=== PATIENT | male | born 1950 | race Two or more races ===

== ENCOUNTER 2018-11-03 06:10 | Inpatient (IN) ==
[2018-11-03] MEDS ORDERED: ONDANSETRON 4 MG/2 ML VIAL IV STA (06:32)
[2018-11-03] MEDS ORDERED: PANTOPRAZOLE 40 MG VIAL IV STA (06:32)
[2018-11-03] MEDS ORDERED: SODIUM CHLORIDE 0.9% 1,000 ML IV STA (06:32)
[2018-11-03 06:49] LABS: Basophils # 0.1 10*3/uL (0.0-0.2); Basophils % 0.3 % (0.0-0.8); Eosinophils # 0.2 10*3/uL (0.0-0.87); Eosinophils % 1.3 % (0.00-10.9); Hemoglobin 14.6 GM/DL (14.0-18.0); Immature Granulocytes % 0.4 %; Immature Granulocytes Absolute 0.06 #; Lymphocytes # 1.9 10*3/uL (1.4-4.0); Lymphocytes % 13.1 % (21.2-54.2); Mean Corpuscular HGB Conc 32.4 GM/DL (32-36); Mean Corpuscular Hemoglobin 28 PG (27-34); Mean Corpuscular Volume 86.5 FL (87-102); Mean Platelet Volume 9.8 FL (9.6-12.0); Monocytes # 0.5 10*3/uL (0.11-0.8); Monocytes % 3.6 % (1.7-12.7); Neutrophils # 12.1 10*3/uL (1.4-7.4); Neutrophils % 81.3 % (38.7-73.9); Platelet Count 262 T/CUMM (130-400); Red Cell Distribution Width 13.2 % (9.3-17.3); White Blood Count 14.8 T/CUMM (4-12)
[2018-11-03 07:16] LABS: Alanine Aminotransferase 31 U/L (16-61); Albumin 3.9 G/DL (3.4-5.0); Alkaline Phosphatase 79 U/L (45-117); Aspartate Amino Transferase 14 U/L (0-37); Blood Urea Nitrogen 9 MG/DL (7-18); Glucose 212 MG/DL (74-106); Osmolality,Calculated 272.2 MOS/KG (273-304); Potassium 3.6 MMOL/L (3.5-5.1); Sodium 134 MMOL/L (136-145); Total Protein 8.2 G/DL (6.4-8.3)
[2018-11-03] MEDS ORDERED: HYDROmorphone 2 MG/1 ML VIAL IV STA (07:47)
[2018-11-03] MEDS ORDERED: GLUCAGON 1 MG VIAL IM PRN (07:50)
[2018-11-03] MEDS ORDERED: DEXTROSE 50% 25 GM/50 ML VIAL IV PRN (07:50)
[2018-11-03] MEDS ORDERED: ONDANSETRON 4 MG/2 ML VIAL IV PRN (10:28)
[2018-11-03] MEDS ORDERED: HYDROmorphone 2 MG/1 ML VIAL IV PRN (10:28)
[2018-11-03] MEDS ORDERED: LACTATED RINGERS 500 ML IV ONE (10:28)
[2018-11-03] MEDS ORDERED: ACETAMINOPHEN 325 MG TABLET PO PRN (10:28)
[2018-11-03] MEDS: SODIUM CHLORIDE 0.45% 1,000 ML IV SCH ×2 (13:25→20:58)
[2018-11-03] MEDS: INSULIN LISPRO 100 UNIT/ML SUBCUT SCH ×2 (15:00→18:58)
[2018-11-03] MEDS ORDERED: hydrALAZINE 20 MG/1 ML VIAL IV PRN (18:25)
[2018-11-03 18:38] LABS: Apearance,Urine CLEAR (Clear); Bilirubin,Urine Negative (Negative); Blood, Urine Negative (Negative); Glucose,Urine (UA) Negative (Negative); Ketones,Urine Negative (Negative); Nitrite,Urine Negative (Negative); Protein,Urine Negative; RBC,Urine <1 /HPF (0-4); Urine Color Straw (Yellow); Urine Urobilinogen < 2.0 EU/DL (0.2-1.0); WBC,Urine <1 /HPF (0-6)
[2018-11-03] MEDS: ATORVASTATIN 20 MG TABLET PO SCH (20:59)
[2018-11-04] MEDS: INSULIN LISPRO 100 UNIT/ML SUBCUT SCH ×4 (00:20→18:35)
[2018-11-04] MEDS ORDERED: DEXTROSE 50% 25 GM/50 ML SYRINGE IV PRN (00:30)
[2018-11-04] MEDS: SODIUM CHLORIDE 0.45% 1,000 ML IV SCH ×2 (05:31→19:45)
[2018-11-04 05:59] LABS: Basophils % 0.2 % (0.0-0.8); Eosinophils # 0.1 10*3/uL (0.0-0.87); Hematocrit 34.2 VOL% (42.0-52.0); Immature Granulocytes % 0.3 %; Immature Granulocytes Absolute 0.03 #; Lymphocytes # 2.3 10*3/uL (1.4-4.0); Lymphocytes % 26.1 % (21.2-54.2); Mean Corpuscular Hemoglobin 29 PG (27-34); Mean Corpuscular Volume 86.4 FL (87-102); Mean Platelet Volume 10.1 FL (9.6-12.0); Monocytes % 10.9 % (1.7-12.7); Neutrophils # 5.4 10*3/uL (1.4-7.4); Neutrophils % 61.5 % (38.7-73.9); Platelet Count 235 T/CUMM (130-400); Red Cell Distribution Width 13.3 % (9.3-17.3)
[2018-11-04 06:00] LABS: Hemoglobin 11.3 GM/DL (14.0-18.0); Red Blood Count 3.96 MC/CUMM (3.8-5.5); White Blood Count 8.8 T/CUMM (4-12)
[2018-11-04] MEDS: LEVOTHYROXINE 100 MCG VIAL IV SCH (06:11)
[2018-11-04 06:22] LABS: Calcium 8.1 MG/DL (8.5-10.1); Osmolality,Calculated 270.8 MOS/KG (273-304); Potassium 3.7 MMOL/L (3.5-5.1)
[2018-11-04] MEDS ORDERED: LEVOTHYROXINE 50 MCG TABLET PO SCH (07:00)
[2018-11-04] MEDS: GLIMEPIRIDE 4 MG TABLET PO SCH ×2 (08:22→17:19)
[2018-11-04] MEDS: ATORVASTATIN 20 MG TABLET PO SCH (21:26)
[2018-11-05] MEDS: INSULIN LISPRO 100 UNIT/ML SUBCUT SCH ×2 (00:34→05:36)
[2018-11-05] MEDS: SODIUM CHLORIDE 0.45% 1,000 ML IV SCH (03:52)
[2018-11-05] MEDS: LEVOTHYROXINE 100 MCG VIAL IV SCH (06:13)
[2018-11-05] MEDS: GLIMEPIRIDE 4 MG TABLET PO SCH (09:05)
[2018-11-05 11:12] VITALS: BP 124/71
== END 2018-11-05 12:25 | disposition home or self-care (01) | DRG 389 ==
LOC: N.ED 06:10 → N.EDINP 07:47 → N.3E 11:30
PROVIDERS: ADMIT Surgery; ATTEND Surgery

== ENCOUNTER 2020-08-06 09:57 | Inpatient (IN) ==
[2020-08-06] MEDS ORDERED: SODIUM CHLORIDE 0.9% 1,000 ML IV STA (10:37)
[2020-08-06 10:46] LABS: Basophils % 0.2 % (0.0-0.8); Hematocrit 37.1 VOL% (42.0-52.0); Hemoglobin 12.4 GM/DL (14.0-18.0); Immature Granulocytes % 0.4 %; Immature Granulocytes Absolute 0.02 #; Lymphocytes # 0.9 10*3/uL (1.4-4.0); Lymphocytes % 17.7 % (21.2-54.2); Mean Corpuscular HGB Conc 33.4 GM/DL (32-36); Mean Corpuscular Volume 85.5 FL (87-102); Mean Platelet Volume 10.1 FL (9.6-12.0); Monocytes % 9.6 % (1.7-12.7); Neutrophils % 72.1 % (38.7-73.9); Platelet Count 189 T/CUMM (130-400); Red Blood Count 4.34 MC/CUMM (3.8-5.5); Red Cell Distribution Width 12.1 % (9.3-17.3); White Blood Count 5.3 T/CUMM (4-12)
[2020-08-06 10:59] LABS: Band Neutrophils 5 % (0-10); Lymphocytes 15 % (20-55); Segmented Neutrophils 73 % (50-85); Total Cells Counted 100
[2020-08-06 11:00] LABS: Hypochromasia 1+; Microcytosis 1+; Platelet Estimate Adequate
[2020-08-06 11:02] LABS: Albumin 3.1 G/DL (3.4-5.0); Bilirubin,Total 0.5 MG/DL (0.2-1.0); Calcium 8.9 MG/DL (8.5-10.1); Osmolality,Calculated 265.9 MOS/KG (273-304); Total Protein 7.7 G/DL (6.4-8.3)
[2020-08-06] MEDS ORDERED: cefTRIAXone 1,000 MG in SODIUM CHLORIDE 0.9% 100 ML IV STA (12:22)
[2020-08-06] MEDS ORDERED: GLUCAGON 1 MG VIAL IM PRN (12:53)
[2020-08-06] MEDS ORDERED: ZALEPLON 5 MG CAPSULE PO PRN (12:53)
[2020-08-06] MEDS ORDERED: DEXTROSE 50% 25 GM/50 ML VIAL IV PRN (12:53)
[2020-08-06] MEDS ORDERED: ONDANSETRON 4 MG/2 ML VIAL IV PRN (12:53)
[2020-08-06 13:32] LABS: Risk Ratio 3.08; Thyroid Stimulating Hormone 4.99 uIU/ml (0.358-3.74)
[2020-08-06 13:34] LABS: Ferritin 273.8 ng/ml (26-388)
[2020-08-06 14:23] LABS: Bilirubin,Urine Negative (Negative); Blood, Urine Negative (Negative); Glucose,Urine (UA) Negative (Negative); Ketones,Urine Negative (Negative); Nitrite,Urine Negative (Negative); Protein,Urine Negative; RBC,Urine 1 /HPF (0-4); Urine Appearance CLEAR (Clear); Urine Color Yellow (Yellow); Urine Specific Gravity 1.004 (1.001-1.035); Urine Urobilinogen < 2.0 EU/DL (0.2-1.0); WBC,Urine <1 /HPF (0-6)
[2020-08-06] MEDS: DEXAMETHASONE 4 MG/1 ML VIAL IV SCH ×2 (14:37→21:40)
[2020-08-06] MEDS: SODIUM CHLORIDE 0.9% 1,000 ML IV SCH ×2 (14:37→22:59)
[2020-08-06] MEDS ORDERED: AZITHROMYCIN INJ 250 MG in SODIUM CHLORIDE 0.9% 250 ML IV SCH (15:00)
[2020-08-06 15:14] LABS: ABG HCO3 22.6 MMOL/L (20-26); ABG Oxygen Saturation 89.6 % (95-100); ABG PCO2 28.1 MM HG (35-48)
[2020-08-06] MEDS: ACETAMINOPHEN 500 MG TABLET PO PRN (15:22)
[2020-08-06] MEDS: INSULIN REGULAR 100 UNIT/ML SUBCUT SCH ×2 (16:55→21:36)
[2020-08-06] MEDS ORDERED: GLIMEPIRIDE 4 MG TABLET PO SCH ×2 (21:00)
[2020-08-06] MEDS: DICYCLOMINE 20 MG TABLET PO SCH (21:36)
[2020-08-06] MEDS: ASCORBIC ACID 500 MG TABLET PO SCH (21:36)
[2020-08-06] MEDS: ENOXAPARIN 40 MG/0.4 ML SYRINGE SUBCUT SCH (21:36)
[2020-08-07 04:28] LABS: ABG Base Excess -2.3 MMOL/L (-2.5-2.5); ABG HCO3 22.2 MMOL/L (20-26); ABG Oxygen Saturation 84.9 % (95-100); ABG PCO2 26.5 MM HG (35-48); ABG PH 7.482 (7.35-7.45); ABG PO2 48.8 MM HG (80-95); ABG TCO2 17.5 MMOL/L (23-27); Allen Test Positive; Pt O2 Delivery Device Room Air
[2020-08-07] MEDS: DEXAMETHASONE 4 MG/1 ML VIAL IV SCH ×2 (05:23→09:58)
[2020-08-07] MEDS: SODIUM CHLORIDE 0.9% 1,000 ML IV SCH ×2 (05:59→21:55)
[2020-08-07] MEDS: ZINC SULFATE 220 MG CAPSULE PO SCH (09:58)
[2020-08-07] MEDS: ASCORBIC ACID 500 MG TABLET PO SCH ×2 (09:58→21:50)
[2020-08-07] MEDS: INSULIN REGULAR 100 UNIT/ML SUBCUT SCH ×4 (09:58→21:50)
[2020-08-07] MEDS: PANTOPRAZOLE 40 MG TABLET PO SCH (09:58)
[2020-08-07] MEDS: LEVOTHYROXINE 75 MCG TABLET PO SCH (09:58)
[2020-08-07] MEDS: DICYCLOMINE 20 MG TABLET PO SCH ×2 (11:04→21:50)
[2020-08-07] MEDS: ENOXAPARIN 40 MG/0.4 ML SYRINGE SUBCUT SCH (21:50)
[2020-08-08 04:47] LABS: Allen Test Positive
[2020-08-08 04:51] LABS: ABG Base Excess -4.9 MMOL/L (-2.5-2.5); ABG HCO3 20.3 MMOL/L (20-26); ABG Oxygen Saturation 95.2 % (95-100); ABG PCO2 27.3 MM HG (35-48); ABG PH 7.431 (7.35-7.45); ABG PO2 76.3 MM HG (80-95); ABG TCO2 16.3 MMOL/L (23-27)
[2020-08-08 05:53] LABS: Basophils % 0.1 % (0.0-0.8); Hematocrit 34.9 VOL% (42.0-52.0); Hemoglobin 11.9 GM/DL (14.0-18.0); Immature Granulocytes % 0.8 %; Immature Granulocytes Absolute 0.11 #; Lymphocytes # 1.2 10*3/uL (1.4-4.0); Lymphocytes % 8.7 % (21.2-54.2); Mean Corpuscular HGB Conc 34.1 GM/DL (32-36); Mean Corpuscular Volume 85.5 FL (87-102); Mean Platelet Volume 9.9 FL (9.6-12.0); Monocytes % 8.3 % (1.7-12.7); Neutrophils % 82.1 % (38.7-73.9); Platelet Count 243 T/CUMM (130-400); Red Blood Count 4.08 MC/CUMM (3.8-5.5); Red Cell Distribution Width 12.2 % (9.3-17.3); White Blood Count 13.2 T/CUMM (4-12)
[2020-08-08] MEDS: SODIUM CHLORIDE 0.9% 1,000 ML IV SCH ×2 (06:10→15:50)
[2020-08-08 06:11] LABS: Calcium 7.7 MG/DL (8.5-10.1); Osmolality,Calculated 272.2 MOS/KG (273-304)
[2020-08-08] MEDS: INSULIN REGULAR 100 UNIT/ML SUBCUT SCH ×4 (08:24→20:36)
[2020-08-08] MEDS: ZINC SULFATE 220 MG CAPSULE PO SCH (09:36)
[2020-08-08] MEDS: ASCORBIC ACID 500 MG TABLET PO SCH ×2 (09:36→20:31)
[2020-08-08] MEDS: DEXAMETHASONE 4 MG/1 ML VIAL IV SCH (09:36)
[2020-08-08] MEDS: PANTOPRAZOLE 40 MG TABLET PO SCH (09:36)
[2020-08-08] MEDS: LEVOTHYROXINE 75 MCG TABLET PO SCH (09:36)
[2020-08-08] MEDS: DICYCLOMINE 20 MG TABLET PO SCH ×2 (09:36→20:31)
[2020-08-08] MEDS ORDERED: ETOMIDATE 20 MG/10 ML VIAL IV ONE ×3 (12:12→13:13)
[2020-08-08] MEDS ORDERED: SUCCINYLCHOLINE 200 MG/10 ML VIAL ONE (12:13)
[2020-08-08] MEDS ORDERED: NOREPINEPHRINE 4 MG/4 ML VIAL IV ONE (12:43)
[2020-08-08] MEDS ORDERED: SODIUM CHLORIDE 0.9% 1,000 ML IV PRN (12:46)
[2020-08-08] MEDS ORDERED: NOREPINEPHRINE 8 MG in SODIUM CHLORIDE 0.9% 242 ML IV PRN (12:53)
[2020-08-08] MEDS ORDERED: MIDAZOLAM 10 MG/2 ML VIAL ONE (12:56)
[2020-08-08] MEDS: MORPHINE 4 MG/1 ML VIAL IV PRN ×2 (12:57→12:58)
[2020-08-08 13:08] LABS: Bilirubin,Urine Negative (Negative); Blood, Urine Negative (Negative); Glucose,Urine (UA) 50 mg/dL (Negative); Hyaline Casts,Urine 3 /LPF (0-3); Ketones,Urine Negative (Negative); Nitrite,Urine Negative (Negative); Protein,Urine Negative; Squamous Epithelial Cell,Urine Occasional /HPF (0-10); Urine Appearance CLEAR (Clear); Urine Color Yellow (Yellow); Urine Specific Gravity 1.016 (1.001-1.035); Urine Urobilinogen < 2.0 EU/DL (0.2-1.0)
[2020-08-08] MEDS ORDERED: SUCCINYLCHOLINE 200 MG/10 ML VIAL IV ONE (13:14)
[2020-08-08] MEDS ORDERED: MORPHINE 4 MG/1 ML VIAL IV ONE (13:30)
[2020-08-08] MEDS: MIDAZOLAM 100 MG in SODIUM CHLORIDE 0.9% 80 ML IV PRN (13:41)
[2020-08-08] MEDS ORDERED: MIDAZOLAM 2 MG/2 ML VIAL IV ONE (13:44)
[2020-08-08 13:51] LABS: ABG Base Excess -10.4 MMOL/L (-2.5-2.5); ABG HCO3 16.3 MMOL/L (20-26); ABG Oxygen Saturation 98.3 % (95-100); ABG PCO2 28.9 MM HG (35-48); ABG PH 7.314 (7.35-7.45); ABG TCO2 13.1 MMOL/L (23-27)
[2020-08-08] MEDS ORDERED: REMDESIVIR 200 MG in SODIUM CHLORIDE 0.9% 210 ML IV ONE (14:00)
[2020-08-08] MEDS ORDERED: HEPARIN DRIP 25,000 UNITS/500 ML PREMIX IV SCH (14:30)
[2020-08-08] MEDS ORDERED: FUROSEMIDE 40 MG/4 ML VIAL IV ONE (16:10)
[2020-08-08] MEDS: HEPARIN DRIP 25,000 UNITS/500 ML PREMIX IV SCH (16:25)
[2020-08-09] MEDS: MIDAZOLAM 100 MG in SODIUM CHLORIDE 0.9% 80 ML IV PRN ×2 (00:24→14:36)
[2020-08-09 04:45] LABS: Basophils % 0.1 % (0.0-0.8); Hematocrit 29.8 VOL% (42.0-52.0); Hemoglobin 10.5 GM/DL (14.0-18.0); Immature Granulocytes % 1.1 %; Immature Granulocytes Absolute 0.16 #; Lymphocytes % 6.6 % (21.2-54.2); Mean Corpuscular HGB Conc 35.2 GM/DL (32-36); Mean Corpuscular Volume 83.5 FL (87-102); Mean Platelet Volume 10.5 FL (9.6-12.0); Monocytes % 4.8 % (1.7-12.7); Neutrophils % 87.4 % (38.7-73.9); Platelet Count 209 T/CUMM (130-400); Red Blood Count 3.57 MC/CUMM (3.8-5.5); Red Cell Distribution Width 12.3 % (9.3-17.3); White Blood Count 14.8 T/CUMM (4-12)
[2020-08-09 05:17] LABS: Calcium 7.5 MG/DL (8.5-10.1); Osmolality,Calculated 279.1 MOS/KG (273-304)
[2020-08-09 06:14] LABS: ABG Base Excess -1.5 MMOL/L (-2.5-2.5); ABG HCO3 23.1 MMOL/L (20-26); ABG Oxygen Saturation 97.2 % (95-100); ABG PCO2 31.5 MM HG (35-48); ABG PH 7.446 (7.35-7.45); ABG PO2 94.9 MM HG (80-95); ABG TCO2 19.5 MMOL/L (23-27); Allen Test Positive; Pt O2 Delivery Device Ventilator
[2020-08-09] MEDS: DEXAMETHASONE 4 MG/1 ML VIAL IV SCH (08:40)
[2020-08-09] MEDS: ASCORBIC ACID 500 MG TABLET PO SCH ×2 (08:41→20:30)
[2020-08-09] MEDS: PANTOPRAZOLE 40 MG TABLET PO SCH (08:41)
[2020-08-09] MEDS: DICYCLOMINE 20 MG TABLET PO SCH ×2 (08:41→20:30)
[2020-08-09] MEDS: LEVOTHYROXINE 75 MCG TABLET PO SCH (08:41)
[2020-08-09] MEDS: ZINC SULFATE 220 MG CAPSULE PO SCH (08:41)
[2020-08-09] MEDS: REMDESIVIR 100 MG in SODIUM CHLORIDE 0.9% 230 ML IV SCH (10:42)
[2020-08-09] MEDS: INSULIN REGULAR 100 UNIT/ML SUBCUT SCH ×3 (11:06→19:07)
[2020-08-09] MEDS: INSULIN GLARGINE 100 UNIT/ML SUBCUT SCH (12:21)
[2020-08-09] MEDS ORDERED: THIAMINE INJ 100 MG, FOLIC ACID INJ 1 MG, MULTIVITAMIN INJ 10 ML in SODIUM CHLORIDE 0.9... IV SCH (12:30)
[2020-08-09] MEDS: HEPARIN DRIP 25,000 UNITS/500 ML PREMIX IV SCH ×2 (22:20→23:06)
[2020-08-10] MEDS: INSULIN REGULAR 100 UNIT/ML SUBCUT SCH ×4 (01:50→18:15)
[2020-08-10 04:50] LABS: ABG Base Excess -0.2 MMOL/L (-2.5-2.5); ABG HCO3 24.3 MMOL/L (20-26); ABG Oxygen Saturation 97.9 % (95-100); ABG PCO2 34.6 MM HG (35-48); ABG PH 7.441 (7.35-7.45); ABG TCO2 21.3 MMOL/L (23-27)
[2020-08-10 04:59] LABS: Basophils % 0.1 % (0.0-0.8); Immature Granulocytes % 1.2 %; Immature Granulocytes Absolute 0.15 #; Lymphocytes # 1.1 10*3/uL (1.4-4.0); Lymphocytes % 8.9 % (21.2-54.2); Mean Corpuscular HGB Conc 34.5 GM/DL (32-36); Mean Corpuscular Volume 83.3 FL (87-102); Mean Platelet Volume 10.5 FL (9.6-12.0); Monocytes % 4.7 % (1.7-12.7); Neutrophils % 85.1 % (38.7-73.9); Platelet Count 216 T/CUMM (130-400); Red Blood Count 3.48 MC/CUMM (3.8-5.5); Red Cell Distribution Width 12.5 % (9.3-17.3); White Blood Count 12.7 T/CUMM (4-12)
[2020-08-10 05:20] LABS: Osmolality,Calculated 289.7 MOS/KG (273-304)
[2020-08-10 05:30] LABS: Band Neutrophils 1 % (0-10); Lymphocytes 7 % (20-55); Platelet Estimate Adequate; Segmented Neutrophils 88 % (50-85); Total Cells Counted 100
[2020-08-10 05:31] LABS: Hypochromasia Slight; Microcytosis Slight
[2020-08-10] MEDS: REMDESIVIR 100 MG in SODIUM CHLORIDE 0.9% 230 ML IV SCH (08:28)
[2020-08-10] MEDS: INSULIN GLARGINE 100 UNIT/ML SUBCUT SCH (08:29)
[2020-08-10] MEDS: ASCORBIC ACID 500 MG TABLET PO SCH ×2 (08:29→20:00)
[2020-08-10] MEDS: DICYCLOMINE 20 MG TABLET PO SCH (08:29)
[2020-08-10] MEDS: ZINC SULFATE 220 MG CAPSULE PO SCH (08:29)
[2020-08-10] MEDS: LEVOTHYROXINE 75 MCG TABLET PO SCH (08:29)
[2020-08-10] MEDS: PANTOPRAZOLE 40 MG TABLET PO SCH (08:29)
[2020-08-10] MEDS: DEXAMETHASONE 4 MG/1 ML VIAL IV SCH (08:29)
[2020-08-10] MEDS ORDERED: FUROSEMIDE 40 MG/4 ML VIAL IV ONE (09:30)
[2020-08-10] MEDS: FOLIC ACID 1 MG TABLET PER TUBE SCH (10:04)
[2020-08-10] MEDS: MULTIVITAMIN LIQUID (CENTRUM) 60 ML BOTTLE PER TUBE SCH (10:04)
[2020-08-10] MEDS: THIAMINE 100 MG TABLET PER TUBE SCH (10:05)
[2020-08-10] MEDS: MIDAZOLAM 100 MG in SODIUM CHLORIDE 0.9% 80 ML IV PRN (10:06)
[2020-08-10] MEDS ORDERED: INSULIN GLARGINE 100 UNIT/ML SUBCUT ONE (11:00)
[2020-08-10] MEDS ORDERED: BISACODYL 5 MG TABLET PO ONE (15:08)
[2020-08-10] MEDS: INSULIN LISPRO 100 UNIT/ML SUBCUT SCH (18:15)
[2020-08-10] MEDS: HEPARIN DRIP 25,000 UNITS/500 ML PREMIX IV SCH (18:48)
[2020-08-11] MEDS: INSULIN LISPRO 100 UNIT/ML SUBCUT SCH ×4 (00:01→18:01)
[2020-08-11] MEDS: INSULIN REGULAR 100 UNIT/ML SUBCUT SCH ×4 (00:01→18:00)
[2020-08-11 04:29] LABS: ABG Base Excess 3.3 MMOL/L (-2.5-2.5); ABG HCO3 27.3 MMOL/L (20-26); ABG Oxygen Saturation 94.6 % (95-100); ABG PCO2 33.7 MM HG (35-48); ABG PH 7.499 (7.35-7.45); ABG PO2 69.9 MM HG (80-95); ABG TCO2 23.7 MMOL/L (23-27); Allen Test Positive; Pt O2 Delivery Device Ventilator
[2020-08-11 05:00] LABS: Basophils % 0.2 % (0.0-0.8); Hematocrit 30.6 VOL% (42.0-52.0); Hemoglobin 10.6 GM/DL (14.0-18.0); Immature Granulocytes % 2.9 %; Immature Granulocytes Absolute 0.52 #; Lymphocytes # 1.5 10*3/uL (1.4-4.0); Lymphocytes % 8.5 % (21.2-54.2); Mean Corpuscular HGB Conc 34.6 GM/DL (32-36); Mean Corpuscular Volume 83.2 FL (87-102); Mean Platelet Volume 10.7 FL (9.6-12.0); Monocytes % 5.3 % (1.7-12.7); Neutrophils % 83.1 % (38.7-73.9); Platelet Count 315 T/CUMM (130-400); Red Blood Count 3.68 MC/CUMM (3.8-5.5); Red Cell Distribution Width 12.4 % (9.3-17.3)
[2020-08-11 05:05] LABS: Albumin 1.9 G/DL (3.4-5.0); Bilirubin,Total 0.6 MG/DL (0.2-1.0); Calcium 8.2 MG/DL (8.5-10.1); Osmolality,Calculated 294.5 MOS/KG (273-304); Total Protein 6.1 G/DL (6.4-8.3)
[2020-08-11 05:23] LABS: Hypochromasia Slight; Lymphocytes 7 % (20-55); Microcytosis Slight; Platelet Estimate Adequate; Segmented Neutrophils 89 % (50-85); Total Cells Counted 100
[2020-08-11] MEDS: HEPARIN DRIP 25,000 UNITS/500 ML PREMIX IV SCH ×2 (06:18→15:47)
[2020-08-11] MEDS ORDERED: HEPARIN 5,000 UNIT/1 ML VIAL IV ONE (06:22)
[2020-08-11] MEDS: ASCORBIC ACID 500 MG TABLET PO SCH ×2 (08:29→21:03)
[2020-08-11] MEDS: LEVOTHYROXINE 75 MCG TABLET PO SCH (08:30)
[2020-08-11] MEDS: THIAMINE 100 MG TABLET PER TUBE SCH (08:30)
[2020-08-11] MEDS: MULTIVITAMIN LIQUID (CENTRUM) 60 ML BOTTLE PER TUBE SCH (08:30)
[2020-08-11] MEDS: PANTOPRAZOLE 40 MG TABLET PO SCH (08:30)
[2020-08-11] MEDS: FOLIC ACID 1 MG TABLET PER TUBE SCH (08:30)
[2020-08-11] MEDS: DEXAMETHASONE 4 MG/1 ML VIAL IV SCH (08:30)
[2020-08-11] MEDS: ZINC SULFATE 220 MG CAPSULE PO SCH (08:30)
[2020-08-11] MEDS: REMDESIVIR 100 MG in SODIUM CHLORIDE 0.9% 230 ML IV SCH (08:34)
[2020-08-11] MEDS: POTASSIUM CHLORIDE 20 MEQ/15 ML UDCUP PER TUBE PRN (08:37)
[2020-08-11] MEDS ORDERED: INSULIN GLARGINE 100 UNIT/ML SUBCUT SCH (09:00)
[2020-08-11] MEDS: MIDAZOLAM 100 MG in SODIUM CHLORIDE 0.9% 80 ML IV PRN (09:46)
[2020-08-11] MEDS: CEFEPIME 1,000 MG in SODIUM CHLORIDE 0.9% 100 ML IV SCH ×3 (10:46→22:07)
[2020-08-11] MEDS ORDERED: FUROSEMIDE 40 MG/4 ML VIAL IV ONE (11:21)
[2020-08-11] MEDS ORDERED: POTASSIUM CHLORIDE 20 MEQ/15 ML UDCUP PER TUBE PRN (11:23)
[2020-08-11] MEDS: VANCOMYCIN INJ 1,000 MG in SODIUM CHLORIDE 0.9% 250 ML IV SCH ×2 (11:54→23:23)
[2020-08-11] MEDS: INSULIN GLARGINE 100 UNIT/ML SUBCUT SCH (12:24)
[2020-08-11] MEDS: ACETAMINOPHEN 500 MG TABLET PO PRN (20:30)
[2020-08-12] MEDS: INSULIN LISPRO 100 UNIT/ML SUBCUT SCH ×5 (00:11→23:53)
[2020-08-12] MEDS: INSULIN REGULAR 100 UNIT/ML SUBCUT SCH ×4 (00:12→17:33)
[2020-08-12] MEDS: CEFEPIME 1,000 MG in SODIUM CHLORIDE 0.9% 100 ML IV SCH ×4 (03:41→21:31)
[2020-08-12 04:50] LABS: ABG Base Excess 2.7 MMOL/L (-2.5-2.5); ABG HCO3 26.3 MMOL/L (20-26); ABG Oxygen Saturation 98.1 % (95-100); ABG PCO2 36.5 MM HG (35-48); ABG PH 7.475 (7.35-7.45); ABG PO2 133.7 MM HG (80-95); ABG TCO2 27.4 MMOL/L (23-27); Allen Test Positive; Pt O2 Delivery Device Ventilator
[2020-08-12 04:58] LABS: Basophils % 0.2 % (0.0-0.8); Eosinophils % 0.1 % (0.00-10.9); Hematocrit 29.3 VOL% (42.0-52.0); Immature Granulocytes % 3.2 %; Immature Granulocytes Absolute 0.49 #; Lymphocytes # 1.8 10*3/uL (1.4-4.0); Lymphocytes % 11.5 % (21.2-54.2); Mean Corpuscular HGB Conc 34.1 GM/DL (32-36); Mean Corpuscular Volume 84.7 FL (87-102); Mean Platelet Volume 10.5 FL (9.6-12.0); Monocytes % 5.8 % (1.7-12.7); Neutrophils % 79.2 % (38.7-73.9); Platelet Count 311 T/CUMM (130-400); Red Blood Count 3.46 MC/CUMM (3.8-5.5); Red Cell Distribution Width 12.8 % (9.3-17.3); White Blood Count 15.4 T/CUMM (4-12)
[2020-08-12 05:11] LABS: Albumin 1.8 G/DL (3.4-5.0); Bilirubin,Total 0.6 MG/DL (0.2-1.0); Ferritin 270.5 ng/ml (26-388); Osmolality,Calculated 290.7 MOS/KG (273-304); Total Protein 5.9 G/DL (6.4-8.3)
[2020-08-12] MEDS: POTASSIUM CHLORIDE 20 MEQ/15 ML UDCUP PER TUBE PRN ×2 (05:38→12:50)
[2020-08-12] MEDS: CHOLECALCIFEROL 1,000 UNIT TABLET PO SCH (09:18)
[2020-08-12] MEDS: MULTIVITAMIN LIQUID (CENTRUM) 60 ML BOTTLE PER TUBE SCH (09:18)
[2020-08-12] MEDS: FOLIC ACID 1 MG TABLET PER TUBE SCH (09:18)
[2020-08-12] MEDS: LOSARTAN 25 MG TABLET PO SCH (09:18)
[2020-08-12] MEDS: ZINC SULFATE 220 MG CAPSULE PO SCH (09:18)
[2020-08-12] MEDS: PANTOPRAZOLE 40 MG TABLET PO SCH (09:18)
[2020-08-12] MEDS: LEVOTHYROXINE 75 MCG TABLET PO SCH (09:18)
[2020-08-12] MEDS: THIAMINE 100 MG TABLET PER TUBE SCH (09:19)
[2020-08-12] MEDS: ASCORBIC ACID 500 MG TABLET PO SCH ×2 (09:19→20:13)
[2020-08-12] MEDS: REMDESIVIR 100 MG in SODIUM CHLORIDE 0.9% 230 ML IV SCH (09:19)
[2020-08-12] MEDS: DEXAMETHASONE 4 MG/1 ML VIAL IV SCH (09:19)
[2020-08-12] MEDS: INSULIN GLARGINE 100 UNIT/ML SUBCUT SCH (09:20)
[2020-08-12] MEDS ORDERED: MAGNESIUM CITRATE 300 ML BOTTLE PO ONE (11:04)
[2020-08-12] MEDS ORDERED: FUROSEMIDE 40 MG/4 ML VIAL IV ONE (11:05)
[2020-08-12] MEDS: HEPARIN DRIP 25,000 UNITS/500 ML PREMIX IV SCH (11:14)
[2020-08-12] MEDS: VANCOMYCIN INJ 1,000 MG in SODIUM CHLORIDE 0.9% 250 ML IV SCH ×2 (11:38→22:41)
[2020-08-12] MEDS: MORPHINE 4 MG/1 ML VIAL IV PRN (20:13)
[2020-08-13] MEDS: INSULIN REGULAR 100 UNIT/ML SUBCUT SCH ×4 (00:19→18:04)
[2020-08-13] MEDS: CEFEPIME 1,000 MG in SODIUM CHLORIDE 0.9% 100 ML IV SCH ×4 (03:29→22:13)
[2020-08-13 04:02] LABS: Basophils % 0.2 % (0.0-0.8); Hematocrit 29.8 VOL% (42.0-52.0); Hemoglobin 10.4 GM/DL (14.0-18.0); Immature Granulocytes % 4.2 %; Immature Granulocytes Absolute 0.71 #; Lymphocytes # 1.4 10*3/uL (1.4-4.0); Lymphocytes % 8.1 % (21.2-54.2); Mean Corpuscular HGB Conc 34.9 GM/DL (32-36); Mean Corpuscular Volume 84.4 FL (87-102); Mean Platelet Volume 10.3 FL (9.6-12.0); Monocytes % 5.2 % (1.7-12.7); Neutrophils % 82.3 % (38.7-73.9); Platelet Count 371 T/CUMM (130-400); Red Blood Count 3.53 MC/CUMM (3.8-5.5)
[2020-08-13 04:53] LABS: Ferritin 286.4 ng/ml (26-388)
[2020-08-13 05:12] LABS: ABG Base Excess 4.5 MMOL/L (-2.5-2.5); ABG HCO3 28.6 MMOL/L (20-26); ABG Oxygen Saturation 88.8 % (95-100); ABG PCO2 40.6 MM HG (35-48); ABG PH 7.465 (7.35-7.45); ABG PO2 57.6 MM HG (80-95); ABG TCO2 29.8 MMOL/L (23-27); Allen Test Positive; Pt O2 Delivery Device Ventilator
[2020-08-13 05:14] LABS: Band Neutrophils 1 % (0-10); Lymphocytes 8 % (20-55); Segmented Neutrophils 87 % (50-85); Total Cells Counted 100
[2020-08-13 05:15] LABS: Microcytosis 1+; Platelet Estimate Increased
[2020-08-13 05:16] LABS: Polychromasia Slight
[2020-08-13] MEDS: INSULIN LISPRO 100 UNIT/ML SUBCUT SCH ×3 (05:34→18:05)
[2020-08-13] MEDS: MORPHINE 4 MG/1 ML VIAL IV PRN (08:20)
[2020-08-13] MEDS: DEXAMETHASONE 4 MG/1 ML VIAL IV SCH (08:25)
[2020-08-13] MEDS: CHOLECALCIFEROL 1,000 UNIT TABLET PO SCH (08:26)
[2020-08-13] MEDS: LOSARTAN 25 MG TABLET PO SCH (08:26)
[2020-08-13] MEDS: THIAMINE 100 MG TABLET PER TUBE SCH (08:26)
[2020-08-13] MEDS: ZINC SULFATE 220 MG CAPSULE PO SCH (08:26)
[2020-08-13] MEDS: PANTOPRAZOLE 40 MG TABLET PO SCH (08:26)
[2020-08-13] MEDS: ASCORBIC ACID 500 MG TABLET PO SCH ×2 (08:26→20:30)
[2020-08-13] MEDS: MULTIVITAMIN LIQUID (CENTRUM) 60 ML BOTTLE PER TUBE SCH (08:26)
[2020-08-13] MEDS: LEVOTHYROXINE 75 MCG TABLET PO SCH (08:26)
[2020-08-13] MEDS: FOLIC ACID 1 MG TABLET PER TUBE SCH (08:26)
[2020-08-13] MEDS: INSULIN GLARGINE 100 UNIT/ML SUBCUT SCH (08:27)
[2020-08-13 09:01] LABS: Calcium 8.6 MG/DL (8.5-10.1); Osmolality,Calculated 293.7 MOS/KG (273-304)
[2020-08-13] MEDS ORDERED: fentaNYL 100 MCG/2 ML VIAL IV ONE (09:30)
[2020-08-13] MEDS: HEPARIN DRIP 25,000 UNITS/500 ML PREMIX IV SCH ×2 (09:41→15:38)
[2020-08-13] MEDS: fentaNYL INJ 1,250 MCG in SODIUM CHLORIDE 0.9% 225 ML IV PRN (10:09)
[2020-08-13] MEDS: FUROSEMIDE 20 MG/2 ML VIAL IV SCH ×2 (12:13→16:26)
[2020-08-13] MEDS: BISACODYL 5 MG TABLET PO SCH (12:14)
[2020-08-13] MEDS: POLYETHYLENE GLYCOL POWDER 17 GM PACK PO SCH (12:15)
[2020-08-13] MEDS: VANCOMYCIN INJ 1,000 MG in SODIUM CHLORIDE 0.9% 250 ML IV SCH (13:26)
[2020-08-13] MEDS: MIDAZOLAM 100 MG in SODIUM CHLORIDE 0.9% 80 ML IV PRN (15:20)
[2020-08-14] MEDS: INSULIN REGULAR 100 UNIT/ML SUBCUT SCH ×5 (01:28→23:58)
[2020-08-14] MEDS: INSULIN LISPRO 100 UNIT/ML SUBCUT SCH ×5 (01:28→23:58)
[2020-08-14] MEDS: VANCOMYCIN INJ 1,250 MG in SODIUM CHLORIDE 0.9% 250 ML IV SCH ×2 (01:29→15:04)
[2020-08-14 04:57] LABS: ABG Base Excess 4.5 MMOL/L (-2.5-2.5); ABG HCO3 28.5 MMOL/L (20-26); ABG Oxygen Saturation 93.5 % (95-100); ABG PCO2 39.9 MM HG (35-48); ABG PH 7.471 (7.35-7.45); ABG PO2 71.1 MM HG (80-95); ABG TCO2 29.7 MMOL/L (23-27); Allen Test Positive; Pt O2 Delivery Device Ventilator
[2020-08-14 05:02] LABS: Basophils % 0.2 % (0.0-0.8); Eosinophils % 0.1 % (0.00-10.9); Hematocrit 29.8 VOL% (42.0-52.0); Hemoglobin 10.1 GM/DL (14.0-18.0); Immature Granulocytes % 5.3 %; Immature Granulocytes Absolute 0.97 #; Lymphocytes # 1.3 10*3/uL (1.4-4.0); Lymphocytes % 7.1 % (21.2-54.2); Mean Corpuscular HGB Conc 33.9 GM/DL (32-36); Mean Corpuscular Volume 85.4 FL (87-102); Mean Platelet Volume 10.3 FL (9.6-12.0); Monocytes % 5.5 % (1.7-12.7); Neutrophils % 81.8 % (38.7-73.9); Platelet Count 356 T/CUMM (130-400); Red Blood Count 3.49 MC/CUMM (3.8-5.5); White Blood Count 18.2 T/CUMM (4-12)
[2020-08-14 05:05] LABS: Ferritin 290.1 ng/ml (26-388)
[2020-08-14 05:28] LABS: Band Neutrophils 3 % (0-10); Hypochromasia 1+; Lymphocytes 7 % (20-55); Segmented Neutrophils 85 % (50-85); Total Cells Counted 100
[2020-08-14 05:29] LABS: Microcytosis 1+; Platelet Estimate Normal
[2020-08-14 05:57] LABS: Calcium 7.9 MG/DL (8.5-10.1); Osmolality,Calculated 295.4 MOS/KG (273-304)
[2020-08-14] MEDS: CEFEPIME 1,000 MG in SODIUM CHLORIDE 0.9% 100 ML IV SCH ×4 (06:10→23:11)
[2020-08-14] MEDS: FOLIC ACID 1 MG TABLET PER TUBE SCH (08:00)
[2020-08-14] MEDS: CHOLECALCIFEROL 1,000 UNIT TABLET PO SCH (08:00)
[2020-08-14] MEDS: POLYETHYLENE GLYCOL POWDER 17 GM PACK PO SCH (08:00)
[2020-08-14] MEDS: DEXAMETHASONE 4 MG/1 ML VIAL IV SCH (08:00)
[2020-08-14] MEDS: THIAMINE 100 MG TABLET PER TUBE SCH (08:00)
[2020-08-14] MEDS: LEVOTHYROXINE 75 MCG TABLET PO SCH (08:00)
[2020-08-14] MEDS: MULTIVITAMIN LIQUID (CENTRUM) 60 ML BOTTLE PER TUBE SCH (08:00)
[2020-08-14] MEDS: ZINC SULFATE 220 MG CAPSULE PO SCH (08:00)
[2020-08-14] MEDS: ASCORBIC ACID 500 MG TABLET PO SCH ×2 (08:00→20:02)
[2020-08-14] MEDS: BISACODYL 5 MG TABLET PO SCH (08:00)
[2020-08-14] MEDS: INSULIN GLARGINE 100 UNIT/ML SUBCUT SCH (08:01)
[2020-08-14] MEDS: PANTOPRAZOLE 40 MG VIAL IV SCH (09:56)
[2020-08-14] MEDS: fentaNYL INJ 1,250 MCG in SODIUM CHLORIDE 0.9% 225 ML IV PRN (12:05)
[2020-08-14] MEDS: LOSARTAN 25 MG TABLET PO SCH ×2 (12:40→20:02)
[2020-08-14] MEDS: ALBUTEROL INHALER 18 GM INH SCH ×2 (16:00→20:01)
[2020-08-14] MEDS: HEPARIN DRIP 25,000 UNITS/500 ML PREMIX IV SCH (19:59)
[2020-08-15 03:55] LABS: ABG Base Excess 4.4 MMOL/L (-2.5-2.5); ABG Oxygen Saturation 92.6 % (95-100); ABG PCO2 37.8 MM HG (35-48); ABG PH 7.487 (7.35-7.45); ABG PO2 66.5 MM HG (80-95); ABG TCO2 29.1 MMOL/L (23-27); Allen Test Positive; Pt O2 Delivery Device Ventilator
[2020-08-15 04:11] LABS: Basophils % 0.1 % (0.0-0.8); Eosinophils % 0.2 % (0.00-10.9); Hematocrit 29.2 VOL% (42.0-52.0); Hemoglobin 9.8 GM/DL (14.0-18.0); Immature Granulocytes % 6.9 %; Immature Granulocytes Absolute 1.03 #; Lymphocytes # 1.7 10*3/uL (1.4-4.0); Lymphocytes % 11.5 % (21.2-54.2); Mean Corpuscular HGB Conc 33.6 GM/DL (32-36); Mean Corpuscular Volume 85.4 FL (87-102); Monocytes % 4.3 % (1.7-12.7); Platelet Count 341 T/CUMM (130-400); Red Blood Count 3.42 MC/CUMM (3.8-5.5); Red Cell Distribution Width 12.6 % (9.3-17.3); White Blood Count 14.9 T/CUMM (4-12)
[2020-08-15] MEDS: CEFEPIME 1,000 MG in SODIUM CHLORIDE 0.9% 100 ML IV SCH ×4 (04:14→21:54)
[2020-08-15 04:28] LABS: Calcium 7.8 MG/DL (8.5-10.1)
[2020-08-15 04:35] LABS: Band Neutrophils 4 % (0-10); Hypochromasia 1+; Lymphocytes 6 % (20-55); Microcytosis 1+; Platelet Estimate Adequate; Segmented Neutrophils 85 % (50-85); Total Cells Counted 100
[2020-08-15 05:16] LABS: Ferritin 288.1 ng/ml (26-388)
[2020-08-15] MEDS: INSULIN LISPRO 100 UNIT/ML SUBCUT SCH ×3 (05:59→17:38)
[2020-08-15] MEDS: INSULIN REGULAR 100 UNIT/ML SUBCUT SCH ×3 (05:59→17:38)
[2020-08-15] MEDS: ALBUTEROL INHALER 18 GM INH SCH ×4 (06:00→18:39)
[2020-08-15] MEDS: FOLIC ACID 1 MG TABLET PER TUBE SCH (08:05)
[2020-08-15] MEDS: BISACODYL 5 MG TABLET PO SCH (08:05)
[2020-08-15] MEDS: POLYETHYLENE GLYCOL POWDER 17 GM PACK PO SCH (08:05)
[2020-08-15] MEDS: MULTIVITAMIN LIQUID (CENTRUM) 60 ML BOTTLE PER TUBE SCH (08:05)
[2020-08-15] MEDS: LOSARTAN 25 MG TABLET PO SCH ×2 (08:05→20:33)
[2020-08-15] MEDS: INSULIN GLARGINE 100 UNIT/ML SUBCUT SCH (08:07)
[2020-08-15] MEDS: DEXAMETHASONE 4 MG/1 ML VIAL IV SCH (08:07)
[2020-08-15] MEDS: PANTOPRAZOLE 40 MG VIAL IV SCH (08:10)
[2020-08-15] MEDS: THIAMINE 100 MG TABLET PER TUBE SCH (08:12)
[2020-08-15] MEDS: LEVOTHYROXINE 75 MCG TABLET PO SCH (08:12)
[2020-08-15] MEDS: ASCORBIC ACID 500 MG TABLET PO SCH ×2 (08:13→20:33)
[2020-08-15] MEDS: ZINC SULFATE 220 MG CAPSULE PO SCH (08:13)
[2020-08-15] MEDS: CHOLECALCIFEROL 1,000 UNIT TABLET PO SCH (08:14)
[2020-08-15] MEDS: VANCOMYCIN INJ 1,250 MG in SODIUM CHLORIDE 0.9% 250 ML IV SCH ×2 (13:22)
[2020-08-15] MEDS: fentaNYL INJ 1,250 MCG in SODIUM CHLORIDE 0.9% 225 ML IV PRN (19:23)
[2020-08-15] MEDS: HEPARIN DRIP 25,000 UNITS/500 ML PREMIX IV SCH (20:33)
[2020-08-16] MEDS: ALBUTEROL INHALER 18 GM INH SCH ×4 (01:14→18:29)
[2020-08-16] MEDS: INSULIN LISPRO 100 UNIT/ML SUBCUT SCH ×4 (01:14→17:58)
[2020-08-16] MEDS: VANCOMYCIN INJ 1,250 MG in SODIUM CHLORIDE 0.9% 250 ML IV SCH (01:14)
[2020-08-16] MEDS: INSULIN REGULAR 100 UNIT/ML SUBCUT SCH ×4 (01:14→17:58)
[2020-08-16] MEDS: CEFEPIME 1,000 MG in SODIUM CHLORIDE 0.9% 100 ML IV SCH (04:31)
[2020-08-16 04:53] LABS: Basophils % 0.2 % (0.0-0.8); Eosinophils % 0.1 % (0.00-10.9); Hematocrit 28.5 VOL% (42.0-52.0); Hemoglobin 9.8 GM/DL (14.0-18.0); Immature Granulocytes % 4.7 %; Immature Granulocytes Absolute 0.75 #; Lymphocytes # 1.7 10*3/uL (1.4-4.0); Lymphocytes % 10.3 % (21.2-54.2); Mean Corpuscular HGB Conc 34.4 GM/DL (32-36); Mean Corpuscular Volume 85.3 FL (87-102); Mean Platelet Volume 10.4 FL (9.6-12.0); Monocytes % 3.7 % (1.7-12.7); Platelet Count 334 T/CUMM (130-400); Red Blood Count 3.34 MC/CUMM (3.8-5.5); Red Cell Distribution Width 12.8 % (9.3-17.3); White Blood Count 16.1 T/CUMM (4-12)
[2020-08-16 05:12] LABS: Calcium 7.9 MG/DL (8.5-10.1); Osmolality,Calculated 278.1 MOS/KG (273-304)
[2020-08-16 05:13] LABS: Band Neutrophils 2 % (0-10); Hypochromasia 1+; Lymphocytes 9 % (20-55); Platelet Estimate Adequate; Segmented Neutrophils 85 % (50-85); Total Cells Counted 100
[2020-08-16 05:14] LABS: Microcytosis 1+
[2020-08-16 05:42] LABS: ABG Base Excess 5.8 MMOL/L (-2.5-2.5); ABG HCO3 29.6 MMOL/L (20-26); ABG Oxygen Saturation 92.8 % (95-100); ABG PCO2 37.2 MM HG (35-48); ABG PH 7.502 (7.35-7.45); ABG PO2 64.2 MM HG (80-95); ABG TCO2 26.5 MMOL/L (23-27); Allen Test Positive; Pt O2 Delivery Device Ventilator
[2020-08-16] MEDS: DEXAMETHASONE 4 MG/1 ML VIAL IV SCH (08:16)
[2020-08-16] MEDS: PANTOPRAZOLE 40 MG VIAL IV SCH (08:16)
[2020-08-16] MEDS: POLYETHYLENE GLYCOL POWDER 17 GM PACK PO SCH (08:16)
[2020-08-16] MEDS: FOLIC ACID 1 MG TABLET PER TUBE SCH (08:17)
[2020-08-16] MEDS: CHOLECALCIFEROL 1,000 UNIT TABLET PO SCH (08:17)
[2020-08-16] MEDS: INSULIN GLARGINE 100 UNIT/ML SUBCUT SCH (08:17)
[2020-08-16] MEDS: BISACODYL 5 MG TABLET PO SCH (08:17)
[2020-08-16] MEDS: ASCORBIC ACID 500 MG TABLET PO SCH ×2 (08:18→20:11)
[2020-08-16] MEDS: THIAMINE 100 MG TABLET PER TUBE SCH (08:18)
[2020-08-16] MEDS: LOSARTAN 25 MG TABLET PO SCH ×3 (08:18→20:19)
[2020-08-16] MEDS: ZINC SULFATE 220 MG CAPSULE PO SCH (08:18)
[2020-08-16] MEDS: LEVOTHYROXINE 75 MCG TABLET PO SCH (08:18)
[2020-08-16] MEDS: MULTIVITAMIN LIQUID (CENTRUM) 60 ML BOTTLE PER TUBE SCH (08:19)
[2020-08-16] MEDS ORDERED: FUROSEMIDE 40 MG/4 ML VIAL IV ONE (09:01)
[2020-08-16] MEDS: ACETAMINOPHEN 500 MG TABLET PO PRN (09:04)
[2020-08-16] MEDS: VANCOMYCIN INJ 1,000 MG in SODIUM CHLORIDE 0.9% 250 ML IV SCH ×2 (09:06→16:14)
[2020-08-16] MEDS: HEPARIN DRIP 25,000 UNITS/500 ML PREMIX IV SCH ×2 (19:21→20:19)
[2020-08-17] MEDS: INSULIN REGULAR 100 UNIT/ML SUBCUT SCH ×4 (00:18→17:46)
[2020-08-17] MEDS: VANCOMYCIN INJ 1,000 MG in SODIUM CHLORIDE 0.9% 250 ML IV SCH ×3 (00:18→17:30)
[2020-08-17] MEDS: INSULIN LISPRO 100 UNIT/ML SUBCUT SCH ×2 (00:18→06:09)
[2020-08-17 04:21] LABS: Basophils # 0.1 10*3/uL (0.0-0.2); Basophils % 0.2 % (0.0-0.8); Eosinophils # 0.1 10*3/uL (0.0-0.87); Eosinophils % 0.3 % (0.00-10.9); Hematocrit 30.3 VOL% (42.0-52.0); Hemoglobin 10.4 GM/DL (14.0-18.0); Immature Granulocytes % 3.4 %; Immature Granulocytes Absolute 0.77 #; Lymphocytes # 2.6 10*3/uL (1.4-4.0); Lymphocytes % 11.4 % (21.2-54.2); Mean Corpuscular HGB Conc 34.3 GM/DL (32-36); Mean Corpuscular Volume 84.6 FL (87-102); Mean Platelet Volume 10.1 FL (9.6-12.0); Monocytes % 3.2 % (1.7-12.7); Neutrophils % 81.5 % (38.7-73.9); Platelet Count 385 T/CUMM (130-400); Red Blood Count 3.58 MC/CUMM (3.8-5.5); Red Cell Distribution Width 12.8 % (9.3-17.3); White Blood Count 22.8 T/CUMM (4-12)
[2020-08-17 04:28] LABS: ABG Base Excess 5.2 MMOL/L (-2.5-2.5); ABG HCO3 28.5 MMOL/L (20-26); ABG Oxygen Saturation 86.4 % (95-100); ABG PCO2 37.2 MM HG (35-48); ABG PH 7.502 (7.35-7.45); ABG PO2 51.9 MM HG (80-95); ABG TCO2 29.6 MMOL/L (23-27); Allen Test Positive; Pt O2 Delivery Device Ventilator
[2020-08-17] MEDS: fentaNYL INJ 1,250 MCG in SODIUM CHLORIDE 0.9% 225 ML IV PRN (04:36)
[2020-08-17 04:45] LABS: Band Neutrophils 2 % (0-10); Lymphocytes 7 % (20-55); Segmented Neutrophils 86 % (50-85); Total Cells Counted 100
[2020-08-17 04:46] LABS: Hypochromasia 1+; Microcytosis 1+; Platelet Estimate Adequate
[2020-08-17 04:54] LABS: Calcium 8.4 MG/DL (8.5-10.1); Osmolality,Calculated 271.1 MOS/KG (273-304)
[2020-08-17] MEDS: MORPHINE 4 MG/1 ML VIAL IV PRN (05:11)
[2020-08-17] MEDS: MULTIVITAMIN LIQUID (CENTRUM) 60 ML BOTTLE PER TUBE SCH (08:18)
[2020-08-17] MEDS: INSULIN GLARGINE 100 UNIT/ML SUBCUT SCH (08:21)
[2020-08-17] MEDS: ACETAMINOPHEN 500 MG TABLET PO PRN (08:22)
[2020-08-17] MEDS: LEVOTHYROXINE 75 MCG TABLET PO SCH (08:22)
[2020-08-17] MEDS: CHOLECALCIFEROL 1,000 UNIT TABLET PO SCH (08:22)
[2020-08-17] MEDS: ZINC SULFATE 220 MG CAPSULE PO SCH (08:23)
[2020-08-17] MEDS: ASCORBIC ACID 500 MG TABLET PO SCH ×2 (08:24→20:12)
[2020-08-17] MEDS: BISACODYL 5 MG TABLET PO SCH (08:24)
[2020-08-17] MEDS: THIAMINE 100 MG TABLET PER TUBE SCH (08:24)
[2020-08-17] MEDS: POLYETHYLENE GLYCOL POWDER 17 GM PACK PO SCH (08:24)
[2020-08-17] MEDS: FOLIC ACID 1 MG TABLET PER TUBE SCH (08:24)
[2020-08-17] MEDS: POTASSIUM CHLORIDE 20 MEQ/15 ML UDCUP PER TUBE PRN ×2 (08:25→13:15)
[2020-08-17] MEDS: MEROPENEM 500 MG in SODIUM CHLORIDE 0.9% 100 ML IV SCH ×3 (09:01→21:33)
[2020-08-17] MEDS: PANTOPRAZOLE 40 MG VIAL IV SCH (09:01)
[2020-08-17] MEDS: LOSARTAN 25 MG TABLET PO SCH ×2 (09:05→20:12)
[2020-08-17] MEDS: ALBUTEROL INHALER 18 GM INH SCH ×4 (09:16→21:33)
[2020-08-17] MEDS ORDERED: NOREPINEPHRINE 8 MG in SODIUM CHLORIDE 0.9% 242 ML IV PRN (09:40)
[2020-08-17 09:45] LABS: Bacteria,Urine Occasional /HPF (Few); Bilirubin,Urine Negative (Negative); Blood, Urine Small mg/dL (Negative); Calcium Oxalate Crystals,Urine Occasional /HPF (Few); Glucose,Urine (UA) Negative (Negative); Granular Casts,Urine 5 /LPF (0-1); Ketones,Urine Negative (Negative); Mucus,Urine Occasional /LPF (Occasional); Nitrite,Urine Negative (Negative); Protein,Urine 30 MG/DL; RBC,Urine 29 /HPF (0-4); Squamous Epithelial Cell,Urine Occasional /HPF (0-10); Urine Appearance CLOUDY (Clear); Urine Color Amber (Yellow); Urine Specific Gravity 1.021 (1.001-1.035); WBC,Urine 7 /HPF (0-6)
[2020-08-17] MEDS ORDERED: NOREPINEPHRINE 4 MG/4 ML VIAL IV ONE (09:45)
[2020-08-17] MEDS: HYDROCORTISONE 100 MG VIAL IV SCH ×2 (11:52→20:11)
[2020-08-17] MEDS: RIFAMPIN INJ 600 MG in SODIUM CHLORIDE 0.9% 100 ML IV SCH (12:10)
[2020-08-17] MEDS: HEPARIN DRIP 25,000 UNITS/500 ML PREMIX IV SCH ×2 (18:33→20:09)
[2020-08-17] MEDS: VANCOMYCIN INJ 1,250 MG in SODIUM CHLORIDE 0.9% 250 ML IV SCH (20:12)
[2020-08-18] MEDS: ALBUTEROL INHALER 18 GM INH SCH ×4 (01:19→18:25)
[2020-08-18] MEDS: INSULIN REGULAR 100 UNIT/ML SUBCUT SCH ×4 (01:29→17:21)
[2020-08-18] MEDS: MEROPENEM 500 MG in SODIUM CHLORIDE 0.9% 100 ML IV SCH ×3 (03:50→18:25)
[2020-08-18] MEDS: HYDROCORTISONE 100 MG VIAL IV SCH ×3 (03:50→21:10)
[2020-08-18 04:41] LABS: ABG Base Excess -0.4 MMOL/L (-2.5-2.5); ABG HCO3 23.1 MMOL/L (20-26); ABG Oxygen Saturation 91.6 % (95-100); ABG PCO2 33.9 MM HG (35-48); ABG PH 7.452 (7.35-7.45); ABG PO2 62.8 MM HG (80-95); ABG TCO2 24.2 MMOL/L (23-27); Allen Test Positive; Pt O2 Delivery Device Ventilator
[2020-08-18 05:03] LABS: Basophils % 0.1 % (0.0-0.8); Eosinophils # 0.1 10*3/uL (0.0-0.87); Eosinophils % 0.4 % (0.00-10.9); Hematocrit 24.9 VOL% (42.0-52.0); Hemoglobin 8.6 GM/DL (14.0-18.0); Immature Granulocytes % 1.2 %; Immature Granulocytes Absolute 0.16 #; Lymphocytes # 0.9 10*3/uL (1.4-4.0); Lymphocytes % 6.6 % (21.2-54.2); Mean Corpuscular HGB Conc 34.5 GM/DL (32-36); Mean Corpuscular Volume 86.5 FL (87-102); Monocytes % 2.2 % (1.7-12.7); Neutrophils % 89.5 % (38.7-73.9); Red Blood Count 2.88 MC/CUMM (3.8-5.5); Red Cell Distribution Width 13.2 % (9.3-17.3)
[2020-08-18 05:04] LABS: Platelet Count 222 T/CUMM (130-400); White Blood Count 13.4 T/CUMM (4-12)
[2020-08-18 05:18] LABS: Calcium 7.9 MG/DL (8.5-10.1); Osmolality,Calculated 279.8 MOS/KG (273-304)
[2020-08-18 05:20] LABS: Band Neutrophils 25 % (0-10); Lymphocytes 5 % (20-55); Platelet Estimate Normal; Segmented Neutrophils 67 % (50-85); Total Cells Counted 100
[2020-08-18 05:21] LABS: Anisocytosis 1+
[2020-08-18] MEDS: FOLIC ACID 1 MG TABLET PER TUBE SCH (08:09)
[2020-08-18] MEDS: LEVOTHYROXINE 75 MCG TABLET PO SCH (08:09)
[2020-08-18] MEDS: ZINC SULFATE 220 MG CAPSULE PO SCH (08:09)
[2020-08-18] MEDS: ASCORBIC ACID 500 MG TABLET PO SCH ×2 (08:09→21:10)
[2020-08-18] MEDS: POLYETHYLENE GLYCOL POWDER 17 GM PACK PO SCH (08:09)
[2020-08-18] MEDS: CHOLECALCIFEROL 1,000 UNIT TABLET PO SCH (08:09)
[2020-08-18] MEDS: BISACODYL 5 MG TABLET PO SCH (08:09)
[2020-08-18] MEDS: THIAMINE 100 MG TABLET PER TUBE SCH (08:09)
[2020-08-18] MEDS: INSULIN GLARGINE 100 UNIT/ML SUBCUT SCH (08:10)
[2020-08-18] MEDS: MULTIVITAMIN LIQUID (CENTRUM) 60 ML BOTTLE PER TUBE SCH (08:10)
[2020-08-18] MEDS: PANTOPRAZOLE 40 MG VIAL IV SCH (08:10)
[2020-08-18] MEDS: LOSARTAN 25 MG TABLET PO SCH ×2 (08:11→21:12)
[2020-08-18] MEDS ORDERED: FUROSEMIDE 20 MG/2 ML VIAL IV ONE (08:42)
[2020-08-18] MEDS: MORPHINE 4 MG/1 ML VIAL IV PRN (09:27)
[2020-08-18] MEDS: fentaNYL INJ 1,250 MCG in SODIUM CHLORIDE 0.9% 225 ML IV PRN (10:21)
[2020-08-18] MEDS: VANCOMYCIN INJ 1,250 MG in SODIUM CHLORIDE 0.9% 250 ML IV SCH ×2 (10:45→20:50)
[2020-08-18] MEDS: RIFAMPIN INJ 600 MG in SODIUM CHLORIDE 0.9% 100 ML IV SCH (15:18)
[2020-08-18] MEDS: HEPARIN DRIP 25,000 UNITS/500 ML PREMIX IV SCH (21:22)
[2020-08-18] MEDS: ACETAMINOPHEN 500 MG TABLET PO PRN (23:50)
[2020-08-19] MEDS: INSULIN REGULAR 100 UNIT/ML SUBCUT SCH ×4 (00:22→18:26)
[2020-08-19] MEDS: ALBUTEROL INHALER 18 GM INH SCH ×4 (02:20→20:06)
[2020-08-19 03:22] LABS: ABG Base Excess 1.9 MMOL/L (-2.5-2.5); ABG HCO3 26.1 MMOL/L (20-26); ABG Oxygen Saturation 95.1 % (95-100); ABG PO2 74.9 MM HG (80-95); ABG TCO2 23.9 MMOL/L (23-27); Allen Test Positive; Pt O2 Delivery Device Ventilator
[2020-08-19] MEDS: MEROPENEM 500 MG in SODIUM CHLORIDE 0.9% 100 ML IV SCH ×4 (03:22→21:20)
[2020-08-19 04:22] LABS: Basophils % 0.1 % (0.0-0.8); Eosinophils # 0.1 10*3/uL (0.0-0.87); Eosinophils % 0.4 % (0.00-10.9); Hematocrit 23.4 VOL% (42.0-52.0); Hemoglobin 7.8 GM/DL (14.0-18.0); Immature Granulocytes Absolute 0.14 #; Lymphocytes # 0.9 10*3/uL (1.4-4.0); Lymphocytes % 5.8 % (21.2-54.2); Mean Corpuscular HGB Conc 33.3 GM/DL (32-36); Mean Platelet Volume 9.9 FL (9.6-12.0); Monocytes % 2.6 % (1.7-12.7); Neutrophils % 90.1 % (38.7-73.9); Platelet Count 216 T/CUMM (130-400); Red Blood Count 2.69 MC/CUMM (3.8-5.5); Red Cell Distribution Width 13.4 % (9.3-17.3); White Blood Count 14.7 T/CUMM (4-12)
[2020-08-19] MEDS: HYDROCORTISONE 100 MG VIAL IV SCH ×3 (04:22→20:23)
[2020-08-19 04:37] LABS: Calcium 8.1 MG/DL (8.5-10.1); Osmolality,Calculated 282.7 MOS/KG (273-304)
[2020-08-19 05:05] LABS: Band Neutrophils 1 % (0-10); Eosinophils 3 % (0-10); Hypochromasia Slight; Lymphocytes 6 % (20-55); Platelet Estimate Normal; Segmented Neutrophils 88 % (50-85); Total Cells Counted 100
[2020-08-19] MEDS: POTASSIUM CHLORIDE 20 MEQ/15 ML UDCUP PER TUBE PRN ×3 (06:00→15:14)
[2020-08-19] MEDS: INSULIN GLARGINE 100 UNIT/ML SUBCUT SCH (08:06)
[2020-08-19] MEDS: CHOLECALCIFEROL 1,000 UNIT TABLET PO SCH (08:07)
[2020-08-19] MEDS: BISACODYL 5 MG TABLET PO SCH (08:07)
[2020-08-19] MEDS: ZINC SULFATE 220 MG CAPSULE PO SCH (08:08)
[2020-08-19] MEDS: POLYETHYLENE GLYCOL POWDER 17 GM PACK PO SCH (08:08)
[2020-08-19] MEDS: ASCORBIC ACID 500 MG TABLET PO SCH ×2 (08:08→20:25)
[2020-08-19] MEDS: FOLIC ACID 1 MG TABLET PER TUBE SCH (08:08)
[2020-08-19] MEDS: THIAMINE 100 MG TABLET PER TUBE SCH (08:08)
[2020-08-19] MEDS: LEVOTHYROXINE 75 MCG TABLET PO SCH (08:08)
[2020-08-19] MEDS: LOSARTAN 25 MG TABLET PO SCH ×2 (08:08→20:25)
[2020-08-19] MEDS: PANTOPRAZOLE 40 MG VIAL IV SCH (08:09)
[2020-08-19] MEDS: MULTIVITAMIN LIQUID (CENTRUM) 60 ML BOTTLE PER TUBE SCH (08:24)
[2020-08-19] MEDS: VANCOMYCIN INJ 1,250 MG in SODIUM CHLORIDE 0.9% 250 ML IV SCH ×2 (10:24→20:25)
[2020-08-19] MEDS: fentaNYL INJ 1,250 MCG in SODIUM CHLORIDE 0.9% 225 ML IV PRN (10:34)
[2020-08-19] MEDS: RIFAMPIN INJ 600 MG in SODIUM CHLORIDE 0.9% 100 ML IV SCH (13:00)
[2020-08-19] MEDS: HEPARIN DRIP 25,000 UNITS/500 ML PREMIX IV SCH (16:47)
[2020-08-19] MEDS: FONDAPARINUX 2.5 MG/0.5 ML SYRINGE SUBCUT SCH (18:40)
[2020-08-20] MEDS: fentaNYL INJ 1,250 MCG in SODIUM CHLORIDE 0.9% 225 ML IV PRN ×3 (00:51→16:57)
[2020-08-20] MEDS: INSULIN REGULAR 100 UNIT/ML SUBCUT SCH ×4 (00:53→19:23)
[2020-08-20] MEDS: ALBUTEROL INHALER 18 GM INH SCH ×4 (01:19→19:24)
[2020-08-20] MEDS: MEROPENEM 500 MG in SODIUM CHLORIDE 0.9% 100 ML IV SCH ×4 (02:23→20:24)
[2020-08-20 03:04] LABS: ABG Base Excess 0.9 MMOL/L (-2.5-2.5); ABG HCO3 25.1 MMOL/L (20-26); ABG Oxygen Saturation 90.1 % (95-100); ABG PCO2 43.7 MM HG (35-48); ABG PH 7.384 (7.35-7.45); ABG PO2 63.8 MM HG (80-95); ABG TCO2 24.3 MMOL/L (23-27); Allen Test Positive; Pt O2 Delivery Device Ventilator
[2020-08-20 04:49] LABS: Basophils % 0.2 % (0.0-0.8); Eosinophils # 0.2 10*3/uL (0.0-0.87); Eosinophils % 0.9 % (0.00-10.9); Hematocrit 25.1 VOL% (42.0-52.0); Hemoglobin 8.4 GM/DL (14.0-18.0); Immature Granulocytes % 1.8 %; Immature Granulocytes Absolute 0.34 #; Lymphocytes # 1.3 10*3/uL (1.4-4.0); Lymphocytes % 6.8 % (21.2-54.2); Mean Corpuscular HGB Conc 33.5 GM/DL (32-36); Mean Corpuscular Volume 87.5 FL (87-102); Mean Platelet Volume 10.5 FL (9.6-12.0); Monocytes % 2.7 % (1.7-12.7); Neutrophils % 87.6 % (38.7-73.9); Platelet Count 227 T/CUMM (130-400); Red Blood Count 2.87 MC/CUMM (3.8-5.5); Red Cell Distribution Width 13.6 % (9.3-17.3)
[2020-08-20] MEDS: HYDROCORTISONE 100 MG VIAL IV SCH ×2 (04:59→11:46)
[2020-08-20 05:11] LABS: Calcium 7.9 MG/DL (8.5-10.1); Osmolality,Calculated 285.4 MOS/KG (273-304)
[2020-08-20 05:24] LABS: Ferritin 239.6 ng/ml (26-388)
[2020-08-20 05:34] LABS: Band Neutrophils 4 % (0-10); Lymphocytes 6 % (20-55); Segmented Neutrophils 88 % (50-85); Total Cells Counted 100
[2020-08-20 05:35] LABS: Hypochromasia 1+; Platelet Estimate Normal
[2020-08-20] MEDS: INSULIN GLARGINE 100 UNIT/ML SUBCUT SCH (08:09)
[2020-08-20] MEDS: POLYETHYLENE GLYCOL POWDER 17 GM PACK PO SCH (08:10)
[2020-08-20] MEDS: PANTOPRAZOLE 40 MG VIAL IV SCH (08:10)
[2020-08-20] MEDS: FOLIC ACID 1 MG TABLET PER TUBE SCH (08:12)
[2020-08-20] MEDS: LOSARTAN 25 MG TABLET PO SCH ×2 (08:12→20:23)
[2020-08-20] MEDS: LEVOTHYROXINE 75 MCG TABLET PO SCH (08:12)
[2020-08-20] MEDS: BISACODYL 5 MG TABLET PO SCH (08:12)
[2020-08-20] MEDS: CHOLECALCIFEROL 1,000 UNIT TABLET PO SCH (08:12)
[2020-08-20] MEDS: ASCORBIC ACID 500 MG TABLET PO SCH ×2 (08:13→20:23)
[2020-08-20] MEDS: ZINC SULFATE 220 MG CAPSULE PO SCH (08:13)
[2020-08-20] MEDS: THIAMINE 100 MG TABLET PER TUBE SCH (08:13)
[2020-08-20] MEDS: VANCOMYCIN INJ 1,250 MG in SODIUM CHLORIDE 0.9% 250 ML IV SCH ×2 (08:14→22:00)
[2020-08-20] MEDS: MULTIVITAMIN LIQUID (CENTRUM) 60 ML BOTTLE PER TUBE SCH (10:32)
[2020-08-20] MEDS: ACETAMINOPHEN 500 MG TABLET PO PRN (11:47)
[2020-08-20] MEDS: ROCURONIUM 500 MG in SODIUM CHLORIDE 0.9% 500 ML IV PRN (14:40)
[2020-08-20 14:58] LABS: ABG Base Excess -3.5 MMOL/L (-2.5-2.5); ABG HCO3 21.3 MMOL/L (20-26); ABG Oxygen Saturation 87.3 % (95-100); ABG PO2 75.4 MM HG (80-95); ABG TCO2 27.4 MMOL/L (23-27)
[2020-08-20 15:17] LABS: ABG PCO2 90.9 MM HG (35-48); ABG PH 7.117 (7.35-7.45)
[2020-08-20] MEDS: METOPROLOL TARTRATE 25 MG TABLET PO SCH ×2 (15:28→20:23)
[2020-08-20 16:05] LABS: ABG HCO3 28.3 MMOL/L (20-26); ABG Oxygen Saturation 93.2 % (95-100); ABG PO2 87.7 MM HG (80-95); ABG TCO2 30.9 MMOL/L (23-27)
[2020-08-20 16:07] LABS: ABG PCO2 85.3 MM HG (35-48); ABG PH 7.139 (7.35-7.45)
[2020-08-20] MEDS: RIFAMPIN INJ 600 MG in SODIUM CHLORIDE 0.9% 100 ML IV SCH (16:30)
[2020-08-20 18:24] LABS: ABG HCO3 29.9 MMOL/L (20-26); ABG PO2 95.2 MM HG (80-95); ABG TCO2 33.3 MMOL/L (23-27)
[2020-08-20 18:26] LABS: ABG Oxygen Saturation 92.9 % (95-100)
[2020-08-20 18:28] LABS: ABG PCO2 110.2 MM HG (35-48); ABG PH 7.051 (7.35-7.45)
[2020-08-20] MEDS: FUROSEMIDE 40 MG/4 ML VIAL IV SCH (18:30)
[2020-08-20] MEDS: FONDAPARINUX 2.5 MG/0.5 ML SYRINGE SUBCUT SCH (19:24)
[2020-08-20] MEDS: methylPREDNISolone SOD SUC 40 MG/1 ML VIAL IV SCH (20:23)
[2020-08-21] MEDS: INSULIN REGULAR 100 UNIT/ML SUBCUT SCH ×4 (00:33→17:39)
[2020-08-21] MEDS: ALBUTEROL INHALER 18 GM INH SCH ×4 (02:31→18:11)
[2020-08-21] MEDS: fentaNYL INJ 1,250 MCG in SODIUM CHLORIDE 0.9% 225 ML IV PRN ×3 (02:32→16:37)
[2020-08-21] MEDS: ROCURONIUM 500 MG in SODIUM CHLORIDE 0.9% 500 ML IV PRN ×2 (02:32→14:51)
[2020-08-21 03:28] LABS: ABG Base Excess -4.8 MMOL/L (-2.5-2.5); ABG HCO3 20.4 MMOL/L (20-26); ABG Oxygen Saturation 98.8 % (95-100); ABG TCO2 29.7 MMOL/L (23-27)
[2020-08-21 03:34] LABS: ABG PH 6.999 (7.35-7.45)
[2020-08-21 04:54] LABS: Basophils # 0.1 10*3/uL (0.0-0.2); Basophils % 0.2 % (0.0-0.8); Eosinophils % 0.1 % (0.00-10.9); Hemoglobin 9.3 GM/DL (14.0-18.0); Immature Granulocytes % 1.4 %; Immature Granulocytes Absolute 0.46 #; Lymphocytes # 1.2 10*3/uL (1.4-4.0); Lymphocytes % 3.7 % (21.2-54.2); Mean Corpuscular Volume 95.5 FL (87-102); Mean Platelet Volume 9.9 FL (9.6-12.0); Monocytes % 2.9 % (1.7-12.7); NRBC # 0.05 10*3/uL; Neutrophils % 91.7 % (38.7-73.9); Platelet Count 141 T/CUMM (130-400); Red Blood Count 3.14 MC/CUMM (3.8-5.5); Red Cell Distribution Width 13.7 % (9.3-17.3); White Blood Count 33.1 T/CUMM (4-12)
[2020-08-21 05:12] LABS: Calcium 8.6 MG/DL (8.5-10.1); Osmolality,Calculated 287.7 MOS/KG (273-304)
[2020-08-21] MEDS: methylPREDNISolone SOD SUC 40 MG/1 ML VIAL IV SCH ×3 (05:19→20:35)
[2020-08-21 05:25] LABS: Ferritin 381.8 ng/ml (26-388)
[2020-08-21 05:35] LABS: Band Neutrophils 2 % (0-10); Hypochromasia 1+; Lymphocytes 4 % (20-55); Microcytosis 1+; Platelet Estimate Adequate; Segmented Neutrophils 91 % (50-85); Total Cells Counted 100
[2020-08-21] MEDS: MEROPENEM 500 MG in SODIUM CHLORIDE 0.9% 100 ML IV SCH ×4 (05:48→22:36)
[2020-08-21] MEDS: FOLIC ACID 1 MG TABLET PER TUBE SCH (08:41)
[2020-08-21] MEDS: ZINC SULFATE 220 MG CAPSULE PO SCH (08:41)
[2020-08-21] MEDS: LEVOTHYROXINE 75 MCG TABLET PO SCH (08:41)
[2020-08-21] MEDS: ASCORBIC ACID 500 MG TABLET PO SCH ×2 (08:41→20:35)
[2020-08-21] MEDS: THIAMINE 100 MG TABLET PER TUBE SCH (08:41)
[2020-08-21] MEDS: BISACODYL 5 MG TABLET PO SCH (08:42)
[2020-08-21] MEDS: CHOLECALCIFEROL 1,000 UNIT TABLET PO SCH (08:42)
[2020-08-21] MEDS: INSULIN GLARGINE 100 UNIT/ML SUBCUT SCH (08:43)
[2020-08-21] MEDS: POLYETHYLENE GLYCOL POWDER 17 GM PACK PO SCH (08:43)
[2020-08-21] MEDS: PANTOPRAZOLE 40 MG VIAL IV SCH (08:44)
[2020-08-21] MEDS: LOSARTAN 25 MG TABLET PO SCH ×2 (08:44→20:35)
[2020-08-21] MEDS: METOPROLOL TARTRATE 25 MG TABLET PO SCH ×2 (08:44→20:35)
[2020-08-21] MEDS: MULTIVITAMIN LIQUID (CENTRUM) 60 ML BOTTLE PER TUBE SCH (08:45)
[2020-08-21] MEDS: FUROSEMIDE 40 MG/4 ML VIAL IV SCH ×2 (08:52→15:34)
[2020-08-21] MEDS: VANCOMYCIN INJ 1,250 MG in SODIUM CHLORIDE 0.9% 250 ML IV SCH ×2 (09:23→20:28)
[2020-08-21 11:52] LABS: ABG Base Excess -1.4 MMOL/L (-2.5-2.5); ABG HCO3 23.3 MMOL/L (20-26); ABG Oxygen Saturation 98.6 % (95-100); ABG PCO2 65.6 MM HG (35-48); ABG PH 7.225 (7.35-7.45); ABG TCO2 25.8 MMOL/L (23-27)
[2020-08-21] MEDS: RIFAMPIN INJ 600 MG in SODIUM CHLORIDE 0.9% 100 ML IV SCH (12:49)
[2020-08-21] MEDS: ACETAMINOPHEN 500 MG TABLET PO PRN (15:38)
[2020-08-21] MEDS: FONDAPARINUX 2.5 MG/0.5 ML SYRINGE SUBCUT SCH (17:40)
[2020-08-22] MEDS: INSULIN REGULAR 100 UNIT/ML SUBCUT SCH ×4 (00:39→18:07)
[2020-08-22] MEDS: ALBUTEROL INHALER 18 GM INH SCH ×4 (00:39→18:07)
[2020-08-22] MEDS: fentaNYL INJ 1,250 MCG in SODIUM CHLORIDE 0.9% 225 ML IV PRN ×3 (01:40→20:05)
[2020-08-22] MEDS: methylPREDNISolone SOD SUC 40 MG/1 ML VIAL IV SCH ×3 (03:01→20:08)
[2020-08-22] MEDS: ROCURONIUM 500 MG in SODIUM CHLORIDE 0.9% 500 ML IV PRN (03:04)
[2020-08-22 03:41] LABS: Basophils % 0.2 % (0.0-0.8); Eosinophils # 0.3 10*3/uL (0.0-0.87); Eosinophils % 1.5 % (0.00-10.9); Immature Granulocytes % 2.2 %; Immature Granulocytes Absolute 0.46 #; Lymphocytes # 0.7 10*3/uL (1.4-4.0); Lymphocytes % 3.3 % (21.2-54.2); Mean Corpuscular Volume 91.2 FL (87-102); Mean Platelet Volume 10.2 FL (9.6-12.0); Monocytes % 2.7 % (1.7-12.7); NRBC # 0.02 10*3/uL; Neutrophils % 90.1 % (38.7-73.9); Platelet Count 110 T/CUMM (130-400); Red Blood Count 2.74 MC/CUMM (3.8-5.5); Red Cell Distribution Width 13.9 % (9.3-17.3)
[2020-08-22 04:00] LABS: Calcium 8.3 MG/DL (8.5-10.1); Osmolality,Calculated 298.3 MOS/KG (273-304)
[2020-08-22 04:22] LABS: Ferritin 166.2 ng/ml (26-388)
[2020-08-22 04:28] LABS: Band Neutrophils 1 % (0-10); Hypochromasia 2+; Lymphocytes 4 % (20-55); Microcytosis 1+; Nucleated Red Blood Cells 1 (0-5); Platelet Estimate Decreased; Segmented Neutrophils 94 % (50-85); Total Cells Counted 100
[2020-08-22] MEDS: MEROPENEM 500 MG in SODIUM CHLORIDE 0.9% 100 ML IV SCH ×3 (04:29→20:08)
[2020-08-22 04:46] LABS: Allen Test Positive; Pt O2 Delivery Device Ventilator
[2020-08-22 04:47] LABS: ABG Base Excess -1.2 MMOL/L (-2.5-2.5); ABG HCO3 23.3 MMOL/L (20-26); ABG Oxygen Saturation 87.1 % (95-100); ABG PCO2 67.6 MM HG (35-48); ABG PO2 58.7 MM HG (80-95); ABG TCO2 26.2 MMOL/L (23-27)
[2020-08-22] MEDS: MULTIVITAMIN LIQUID (CENTRUM) 60 ML BOTTLE PER TUBE SCH (08:12)
[2020-08-22] MEDS: PANTOPRAZOLE 40 MG VIAL IV SCH (08:12)
[2020-08-22] MEDS: FUROSEMIDE 40 MG/4 ML VIAL IV SCH (08:14)
[2020-08-22] MEDS: CHOLECALCIFEROL 1,000 UNIT TABLET PO SCH (08:14)
[2020-08-22] MEDS: ASCORBIC ACID 500 MG TABLET PO SCH ×2 (08:15→20:10)
[2020-08-22] MEDS: INSULIN GLARGINE 100 UNIT/ML SUBCUT SCH ×2 (08:15→12:43)
[2020-08-22] MEDS: METOPROLOL TARTRATE 25 MG TABLET PO SCH ×2 (08:15→20:09)
[2020-08-22] MEDS: ZINC SULFATE 220 MG CAPSULE PO SCH (08:15)
[2020-08-22] MEDS: LOSARTAN 25 MG TABLET PO SCH (08:15)
[2020-08-22] MEDS: BISACODYL 5 MG TABLET PO SCH (08:15)
[2020-08-22] MEDS: FOLIC ACID 1 MG TABLET PER TUBE SCH (08:15)
[2020-08-22] MEDS: THIAMINE 100 MG TABLET PER TUBE SCH (08:15)
[2020-08-22] MEDS: POLYETHYLENE GLYCOL POWDER 17 GM PACK PO SCH (08:15)
[2020-08-22] MEDS: LEVOTHYROXINE 75 MCG TABLET PO SCH (08:15)
[2020-08-22] MEDS: VANCOMYCIN INJ 1,250 MG in SODIUM CHLORIDE 0.9% 250 ML IV SCH (09:23)
[2020-08-22] MEDS: SODIUM CHLORIDE 0.9% 1,000 ML IV SCH (12:39)
[2020-08-22] MEDS: FAMOTIDINE 20 MG/2 ML VIAL IV SCH (12:40)
[2020-08-22] MEDS: RIFAMPIN INJ 600 MG in SODIUM CHLORIDE 0.9% 100 ML IV SCH (12:55)
[2020-08-22] MEDS: ENOXAPARIN 40 MG/0.4 ML SYRINGE SUBCUT SCH (14:49)
[2020-08-22] MEDS: ROCURONIUM 1,000 MG in SODIUM CHLORIDE 0.9% 175 ML IV PRN (19:30)
[2020-08-23] MEDS: INSULIN REGULAR 100 UNIT/ML SUBCUT SCH ×4 (00:31→18:59)
[2020-08-23] MEDS: ALBUTEROL INHALER 18 GM INH SCH ×4 (00:35→19:00)
[2020-08-23] MEDS: SODIUM CHLORIDE 0.9% 1,000 ML IV SCH ×3 (02:46→19:33)
[2020-08-23] MEDS: ENOXAPARIN 40 MG/0.4 ML SYRINGE SUBCUT SCH ×2 (02:46→13:34)
[2020-08-23] MEDS: methylPREDNISolone SOD SUC 40 MG/1 ML VIAL IV SCH ×3 (02:50→20:22)
[2020-08-23 03:37] LABS: ABG HCO3 20.9 MMOL/L (20-26); ABG Oxygen Saturation 88.9 % (95-100); ABG PO2 65.6 MM HG (80-95); Allen Test Positive; Pt O2 Delivery Device Ventilator
[2020-08-23 03:40] LABS: ABG PCO2 75.2 MM HG (35-48); ABG PH 7.153 (7.35-7.45)
[2020-08-23] MEDS: MEROPENEM 500 MG in SODIUM CHLORIDE 0.9% 100 ML IV SCH ×3 (04:06→20:21)
[2020-08-23 04:46] LABS: Basophils % 0.2 % (0.0-0.8); Eosinophils # 0.5 10*3/uL (0.0-0.87); Eosinophils % 2.8 % (0.00-10.9); Hematocrit 25.3 VOL% (42.0-52.0); Hemoglobin 7.8 GM/DL (14.0-18.0); Immature Granulocytes % 6.9 %; Immature Granulocytes Absolute 1.13 #; Lymphocytes # 0.8 10*3/uL (1.4-4.0); Lymphocytes % 4.8 % (21.2-54.2); Mean Corpuscular HGB Conc 30.8 GM/DL (32-36); Mean Corpuscular Volume 93.4 FL (87-102); Mean Platelet Volume 10.2 FL (9.6-12.0); Monocytes % 2.8 % (1.7-12.7); NRBC # 0.04 10*3/uL; Neutrophils % 82.5 % (38.7-73.9); Platelet Count 110 T/CUMM (130-400); Red Blood Count 2.71 MC/CUMM (3.8-5.5); Red Cell Distribution Width 14.3 % (9.3-17.3); White Blood Count 16.4 T/CUMM (4-12)
[2020-08-23 05:00] LABS: Calcium 8.8 MG/DL (8.5-10.1); Osmolality,Calculated 307.8 MOS/KG (273-304)
[2020-08-23] MEDS: fentaNYL INJ 1,250 MCG in SODIUM CHLORIDE 0.9% 225 ML IV PRN ×2 (05:14→19:00)
[2020-08-23 05:18] LABS: Anisocytosis 1+; Band Neutrophils 7 % (0-10); Eosinophils 1 % (0-10); Lymphocytes 2 % (20-55); Macrocytosis 1+; Platelet Estimate Decreased; Polychromasia Few; Segmented Neutrophils 87 % (50-85); Total Cells Counted 100
[2020-08-23] MEDS: LEVOTHYROXINE 75 MCG TABLET PO SCH (08:04)
[2020-08-23] MEDS: POLYETHYLENE GLYCOL POWDER 17 GM PACK PO SCH (08:04)
[2020-08-23] MEDS: THIAMINE 100 MG TABLET PER TUBE SCH (08:04)
[2020-08-23] MEDS: CHOLECALCIFEROL 1,000 UNIT TABLET PO SCH (08:04)
[2020-08-23] MEDS: FOLIC ACID 1 MG TABLET PER TUBE SCH (08:04)
[2020-08-23] MEDS: METOPROLOL TARTRATE 25 MG TABLET PO SCH ×2 (08:04→20:22)
[2020-08-23] MEDS: ASCORBIC ACID 500 MG TABLET PO SCH ×2 (08:04→20:22)
[2020-08-23] MEDS: INSULIN GLARGINE 100 UNIT/ML SUBCUT SCH (08:04)
[2020-08-23] MEDS: BISACODYL 5 MG TABLET PO SCH (08:04)
[2020-08-23] MEDS: ZINC SULFATE 220 MG CAPSULE PO SCH (08:04)
[2020-08-23] MEDS: MULTIVITAMIN LIQUID (CENTRUM) 60 ML BOTTLE PER TUBE SCH (08:05)
[2020-08-23] MEDS: CETIRIZINE 1 MG/ML 30 ML/BOTTLE PO SCH (08:07)
[2020-08-23] MEDS ORDERED: SODIUM POLYSTYRENE SULFATE 15 GM/60 ML BOTTLE NG ONE (09:30)
[2020-08-23] MEDS: FAMOTIDINE 20 MG/2 ML VIAL IV SCH (10:51)
[2020-08-23 11:40] LABS: ABG Base Excess -3.6 MMOL/L (-2.5-2.5); ABG HCO3 21.3 MMOL/L (20-26); ABG Oxygen Saturation 92.4 % (95-100); ABG PCO2 58.4 MM HG (35-48); ABG PH 7.228 (7.35-7.45); ABG PO2 67.1 MM HG (80-95); ABG TCO2 23.3 MMOL/L (23-27)
[2020-08-23] MEDS: MINERAL OIL/PETROLATUM OPH OINT 3.5 GM TUBE BOTH EYES SCH (21:00)
[2020-08-24] MEDS: ALBUTEROL INHALER 18 GM INH SCH ×4 (01:30→19:00)
[2020-08-24] MEDS: INSULIN REGULAR 100 UNIT/ML SUBCUT SCH ×4 (01:30→18:19)
[2020-08-24] MEDS: ENOXAPARIN 40 MG/0.4 ML SYRINGE SUBCUT SCH ×2 (01:32→14:47)
[2020-08-24] MEDS: fentaNYL INJ 1,250 MCG in SODIUM CHLORIDE 0.9% 225 ML IV PRN ×3 (02:55→18:20)
[2020-08-24 02:56] LABS: ABG Base Excess -2.5 MMOL/L (-2.5-2.5); ABG HCO3 22.2 MMOL/L (20-26); ABG Oxygen Saturation 85.9 % (95-100); ABG PCO2 61.8 MM HG (35-48); ABG PH 7.226 (7.35-7.45); ABG PO2 59.9 MM HG (80-95); ABG TCO2 24.6 MMOL/L (23-27); Allen Test Positive; Pt O2 Delivery Device Ventilator
[2020-08-24] MEDS: methylPREDNISolone SOD SUC 40 MG/1 ML VIAL IV SCH ×3 (03:58→20:00)
[2020-08-24] MEDS: MEROPENEM 500 MG in SODIUM CHLORIDE 0.9% 100 ML IV SCH ×3 (04:30→20:00)
[2020-08-24 04:48] LABS: Basophils % 0.1 % (0.0-0.8); Eosinophils # 0.7 10*3/uL (0.0-0.87); Eosinophils % 4.7 % (0.00-10.9); Hematocrit 24.3 VOL% (42.0-52.0); Hemoglobin 7.8 GM/DL (14.0-18.0); Immature Granulocytes % 5.4 %; Immature Granulocytes Absolute 0.74 #; Mean Corpuscular HGB Conc 32.1 GM/DL (32-36); Mean Corpuscular Volume 91.4 FL (87-102); Mean Platelet Volume 10.2 FL (9.6-12.0); Monocytes % 3.6 % (1.7-12.7); NRBC # 0.06 10*3/uL; Neutrophils % 79.2 % (38.7-73.9); Platelet Count 114 T/CUMM (130-400); Red Blood Count 2.66 MC/CUMM (3.8-5.5); Red Cell Distribution Width 14.5 % (9.3-17.3); White Blood Count 13.8 T/CUMM (4-12)
[2020-08-24 05:12] LABS: Bilirubin,Total 0.5 MG/DL (0.2-1.0); Calcium 8.8 MG/DL (8.5-10.1); Ferritin 255.1 ng/ml (26-388); Osmolality,Calculated 318.6 MOS/KG (273-304); Total Protein 5.8 G/DL (6.4-8.3)
[2020-08-24 05:20] LABS: Band Neutrophils 10 % (0-10); Eosinophils 11 % (0-10); Lymphocytes 4 % (20-55); Nucleated Red Blood Cells 1 (0-5); Segmented Neutrophils 72 % (50-85); Total Cells Counted 100
[2020-08-24 05:21] LABS: Hypochromasia 1+; Microcytosis 1+; Polychromasia Slight
[2020-08-24 05:22] LABS: Platelet Estimate Decreased
[2020-08-24] MEDS: SODIUM CHLORIDE 0.9% 1,000 ML IV SCH ×4 (05:42→20:25)
[2020-08-24] MEDS: ROCURONIUM 1,000 MG in SODIUM CHLORIDE 0.9% 175 ML IV PRN (07:03)
[2020-08-24] MEDS: INSULIN GLARGINE 100 UNIT/ML SUBCUT SCH (08:25)
[2020-08-24] MEDS: POLYETHYLENE GLYCOL POWDER 17 GM PACK PO SCH (08:26)
[2020-08-24] MEDS: CHOLECALCIFEROL 1,000 UNIT TABLET PO SCH (08:27)
[2020-08-24] MEDS: THIAMINE 100 MG TABLET PER TUBE SCH (08:27)
[2020-08-24] MEDS: BISACODYL 5 MG TABLET PO SCH (08:27)
[2020-08-24] MEDS: ZINC SULFATE 220 MG CAPSULE PO SCH (08:27)
[2020-08-24] MEDS: FOLIC ACID 1 MG TABLET PER TUBE SCH (08:27)
[2020-08-24] MEDS: MULTIVITAMIN LIQUID (CENTRUM) 60 ML BOTTLE PER TUBE SCH (08:27)
[2020-08-24] MEDS: METOPROLOL TARTRATE 25 MG TABLET PO SCH ×2 (08:27→20:01)
[2020-08-24] MEDS: ASCORBIC ACID 500 MG TABLET PO SCH ×2 (08:27→20:01)
[2020-08-24] MEDS: LEVOTHYROXINE 75 MCG TABLET PO SCH (08:27)
[2020-08-24] MEDS: CETIRIZINE 1 MG/ML 30 ML/BOTTLE PO SCH (08:27)
[2020-08-24] MEDS: FAMOTIDINE 20 MG/2 ML VIAL IV SCH (11:20)
[2020-08-24] MEDS: FLUCONAZOLE INJ 200 MG in PREMIX 1 EACH IV SCH (14:47)
[2020-08-24] MEDS: LINEZOLID INJ 600 MG in PREMIX 1 EACH IV SCH (15:48)
[2020-08-24] MEDS: COLISTIMETHATE 150 MG VIAL RESP TX SCH (17:03)
[2020-08-24] MEDS: MINERAL OIL/PETROLATUM OPH OINT 3.5 GM TUBE BOTH EYES SCH (21:39)
[2020-08-25] MEDS: COLISTIMETHATE 150 MG VIAL RESP TX SCH ×3 (00:03→15:10)
[2020-08-25] MEDS: INSULIN REGULAR 100 UNIT/ML SUBCUT SCH ×4 (00:46→17:43)
[2020-08-25] MEDS: ALBUTEROL INHALER 18 GM INH SCH ×4 (01:30→20:26)
[2020-08-25] MEDS: ENOXAPARIN 40 MG/0.4 ML SYRINGE SUBCUT SCH (02:05)
[2020-08-25] MEDS: LINEZOLID INJ 600 MG in PREMIX 1 EACH IV SCH ×2 (02:17→15:34)
[2020-08-25] MEDS: methylPREDNISolone SOD SUC 40 MG/1 ML VIAL IV SCH ×3 (04:27→20:23)
[2020-08-25] MEDS: MEROPENEM 500 MG in SODIUM CHLORIDE 0.9% 100 ML IV SCH ×3 (04:27→20:22)
[2020-08-25 05:10] LABS: Basophils % 0.1 % (0.0-0.8); Eosinophils # 0.5 10*3/uL (0.0-0.87); Eosinophils % 3.2 % (0.00-10.9); Hematocrit 23.8 VOL% (42.0-52.0); Hemoglobin 7.4 GM/DL (14.0-18.0); Immature Granulocytes % 5.4 %; Lymphocytes # 1.1 10*3/uL (1.4-4.0); Lymphocytes % 7.3 % (21.2-54.2); Mean Corpuscular HGB Conc 31.1 GM/DL (32-36); Mean Corpuscular Volume 92.2 FL (87-102); Monocytes % 3.8 % (1.7-12.7); NRBC # 0.09 10*3/uL; Neutrophils % 80.2 % (38.7-73.9); Platelet Count 120 T/CUMM (130-400); Red Blood Count 2.58 MC/CUMM (3.8-5.5); Red Cell Distribution Width 14.7 % (9.3-17.3); White Blood Count 14.9 T/CUMM (4-12)
[2020-08-25 05:30] LABS: Band Neutrophils 6 % (0-10); Eosinophils 5 % (0-10); Lymphocytes 2 % (20-55); Platelet Estimate Normal; Segmented Neutrophils 85 % (50-85); Total Cells Counted 100
[2020-08-25 05:31] LABS: Hypochromasia 1+; Microcytosis 1+
[2020-08-25 05:39] LABS: ABG Base Excess -5.9 MMOL/L (-2.5-2.5); ABG HCO3 19.4 MMOL/L (20-26); ABG Oxygen Saturation 85.4 % (95-100); ABG PCO2 66.8 MM HG (35-48); ABG PO2 63.9 MM HG (80-95); ABG TCO2 22.7 MMOL/L (23-27)
[2020-08-25 05:48] LABS: Albumin 0.9 G/DL (3.4-5.0); Bilirubin,Total 0.5 MG/DL (0.2-1.0); Calcium 8.3 MG/DL (8.5-10.1); Ferritin 291.7 ng/ml (26-388); Osmolality,Calculated 318.8 MOS/KG (273-304); Total Protein 5.5 G/DL (6.4-8.3)
[2020-08-25 05:50] LABS: ABG PH 7.154 (7.35-7.45)
[2020-08-25] MEDS: SODIUM CHLORIDE 0.9% 1,000 ML IV SCH (06:21)
[2020-08-25] MEDS ORDERED: SODIUM BICARB INJ 100 MEQ in SODIUM CHLORIDE 0.45% 1,000 ML IV SCH (06:30)
[2020-08-25] MEDS: BISACODYL 5 MG TABLET PO SCH (09:18)
[2020-08-25] MEDS: MULTIVITAMIN LIQUID (CENTRUM) 60 ML BOTTLE PER TUBE SCH (09:18)
[2020-08-25] MEDS: INSULIN GLARGINE 100 UNIT/ML SUBCUT SCH ×2 (09:19→14:01)
[2020-08-25] MEDS: METOPROLOL TARTRATE 25 MG TABLET PO SCH ×2 (09:19→20:23)
[2020-08-25] MEDS: ZINC SULFATE 220 MG CAPSULE PO SCH (09:19)
[2020-08-25] MEDS: CETIRIZINE 1 MG/ML 30 ML/BOTTLE PO SCH (09:19)
[2020-08-25] MEDS: POLYETHYLENE GLYCOL POWDER 17 GM PACK PO SCH (09:19)
[2020-08-25] MEDS: CHOLECALCIFEROL 1,000 UNIT TABLET PO SCH (09:19)
[2020-08-25] MEDS: LEVOTHYROXINE 75 MCG TABLET PO SCH (09:19)
[2020-08-25] MEDS: THIAMINE 100 MG TABLET PER TUBE SCH (09:20)
[2020-08-25] MEDS: ASCORBIC ACID 500 MG TABLET PO SCH ×2 (09:20→20:23)
[2020-08-25] MEDS: FOLIC ACID 1 MG TABLET PER TUBE SCH (09:20)
[2020-08-25] MEDS: SODIUM ZIRCONIUM CYCLOSILICATE 10 GM PACK PO SCH ×3 (09:25→20:22)
[2020-08-25] MEDS: FAMOTIDINE 20 MG/2 ML VIAL IV SCH (12:03)
[2020-08-25] MEDS: fentaNYL INJ 1,250 MCG in SODIUM CHLORIDE 0.9% 225 ML IV PRN ×2 (12:05→22:58)
[2020-08-25] MEDS ORDERED: FUROSEMIDE 40 MG/4 ML VIAL IV ONE (13:01)
[2020-08-25] MEDS: FLUCONAZOLE INJ 200 MG in PREMIX 1 EACH IV SCH (14:01)
[2020-08-25] MEDS: ROCURONIUM 1,000 MG in SODIUM CHLORIDE 0.9% 175 ML IV PRN (19:45)
[2020-08-25] MEDS: MINERAL OIL/PETROLATUM OPH OINT 3.5 GM TUBE BOTH EYES SCH (21:11)
[2020-08-26] MEDS: COLISTIMETHATE 150 MG VIAL RESP TX SCH
[2020-08-26] MEDS: ALBUTEROL INHALER 18 GM INH SCH ×4 (01:00→19:00)
[2020-08-26] MEDS: ALBUTEROL/IPRATROPIUM 3 ML NEB RESP TX SCH ×2 (01:15→07:26)
[2020-08-26] MEDS: INSULIN REGULAR 100 UNIT/ML SUBCUT SCH ×4 (01:28→18:01)
[2020-08-26] MEDS ORDERED: ALBUTEROL/IPRATROPIUM 3 ML NEB RESP TX SCH (01:30)
[2020-08-26] MEDS: LINEZOLID INJ 600 MG in PREMIX 1 EACH IV SCH ×2 (01:32→15:09)
[2020-08-26] MEDS: ENOXAPARIN 40 MG/0.4 ML SYRINGE SUBCUT SCH (02:45)
[2020-08-26] MEDS: methylPREDNISolone SOD SUC 40 MG/1 ML VIAL IV SCH ×3 (04:28→20:00)
[2020-08-26] MEDS: MEROPENEM 500 MG in SODIUM CHLORIDE 0.9% 100 ML IV SCH (04:28)
[2020-08-26 04:37] LABS: Basophils % 0.3 % (0.0-0.8); Eosinophils # 0.3 10*3/uL (0.0-0.87); Hematocrit 23.7 VOL% (42.0-52.0); Hemoglobin 7.4 GM/DL (14.0-18.0); Immature Granulocytes % 4.4 %; Immature Granulocytes Absolute 0.69 #; Lymphocytes # 0.9 10*3/uL (1.4-4.0); Lymphocytes % 5.5 % (21.2-54.2); Mean Corpuscular HGB Conc 31.2 GM/DL (32-36); Mean Corpuscular Volume 92.2 FL (87-102); Monocytes % 3.8 % (1.7-12.7); NRBC # 0.26 10*3/uL; Platelet Count 127 T/CUMM (130-400); Red Blood Count 2.57 MC/CUMM (3.8-5.5); Red Cell Distribution Width 14.6 % (9.3-17.3); White Blood Count 15.7 T/CUMM (4-12)
[2020-08-26 04:57] LABS: Allen Test Positive; Pt O2 Delivery Device Ventilator
[2020-08-26 05:01] LABS: ABG Oxygen Saturation 83.9 % (95-100); ABG PO2 59.9 MM HG (80-95); ABG TCO2 26.2 MMOL/L (23-27)
[2020-08-26 05:16] LABS: ABG PCO2 71.7 MM HG (35-48)
[2020-08-26 05:17] LABS: ABG PH 7.142 (7.35-7.45)
[2020-08-26 05:21] LABS: Albumin 1.1 G/DL (3.4-5.0); Bilirubin,Total 0.7 MG/DL (0.2-1.0); Ferritin 324.9 ng/ml (26-388); Osmolality,Calculated 314.4 MOS/KG (273-304); Total Protein 5.9 G/DL (6.4-8.3)
[2020-08-26 05:44] LABS: Band Neutrophils 24 % (0-10); Eosinophils 2 % (0-10); Lymphocytes 7 % (20-55); Metamyelocytes 1 %; Nucleated Red Blood Cells 1 (0-5); Segmented Neutrophils 62 % (50-85); Total Cells Counted 100
[2020-08-26 05:45] LABS: Anisocytosis 1+; Basophilic Stippling Slight; Platelet Estimate Adequate; Polychromasia Slight
[2020-08-26] MEDS ORDERED: ALBUTEROL/IPRATROPIUM 3 ML NEB RESP TX PRN (07:24)
[2020-08-26] MEDS: ZINC SULFATE 220 MG CAPSULE PO SCH (08:23)
[2020-08-26] MEDS: INSULIN GLARGINE 100 UNIT/ML SUBCUT SCH (08:23)
[2020-08-26] MEDS: CHOLECALCIFEROL 1,000 UNIT TABLET PO SCH (08:23)
[2020-08-26] MEDS: LEVOTHYROXINE 75 MCG TABLET PO SCH (08:24)
[2020-08-26] MEDS: THIAMINE 100 MG TABLET PER TUBE SCH (08:24)
[2020-08-26] MEDS: FOLIC ACID 1 MG TABLET PER TUBE SCH (08:24)
[2020-08-26] MEDS: METOPROLOL TARTRATE 25 MG TABLET PO SCH ×2 (08:24→20:01)
[2020-08-26] MEDS: MULTIVITAMIN LIQUID (CENTRUM) 60 ML BOTTLE PER TUBE SCH (08:24)
[2020-08-26] MEDS: SODIUM ZIRCONIUM CYCLOSILICATE 10 GM PACK PO SCH ×3 (08:24→20:00)
[2020-08-26] MEDS: ASCORBIC ACID 500 MG TABLET PO SCH ×2 (08:25→20:01)
[2020-08-26] MEDS: CETIRIZINE 1 MG/ML 30 ML/BOTTLE PO SCH (08:25)
[2020-08-26] MEDS: POLYETHYLENE GLYCOL POWDER 17 GM PACK PO SCH (08:25)
[2020-08-26] MEDS: BISACODYL 5 MG TABLET PO SCH (08:25)
[2020-08-26] MEDS: cefTRIAXone 1,000 MG in SYRINGE 1 EACH IV SCH (08:30)
[2020-08-26] MEDS: fentaNYL INJ 1,250 MCG in SODIUM CHLORIDE 0.9% 225 ML IV PRN ×2 (09:42→21:30)
[2020-08-26] MEDS: FAMOTIDINE 20 MG/2 ML VIAL IV SCH (11:14)
[2020-08-26 11:45] LABS: ABG HCO3 20.2 MMOL/L (20-26); ABG Oxygen Saturation 90.7 % (95-100); ABG PCO2 65.8 MM HG (35-48); ABG PO2 74.1 MM HG (80-95); ABG TCO2 23.3 MMOL/L (23-27)
[2020-08-26 11:53] LABS: ABG PH 7.169 (7.35-7.45)
[2020-08-26] MEDS ORDERED: SODIUM CHLORIDE 0.9% 1,000 ML IV PRN (12:51)
[2020-08-26] MEDS: FLUCONAZOLE INJ 200 MG in PREMIX 1 EACH IV SCH (14:01)
[2020-08-26] MEDS: FUROSEMIDE 40 MG/4 ML VIAL IV SCH (16:08)
[2020-08-26 17:26] VITALS: BP 108/57
[2020-08-26] MEDS: MINERAL OIL/PETROLATUM OPH OINT 3.5 GM TUBE BOTH EYES SCH (21:00)
[2020-08-27] MEDS: INSULIN REGULAR 100 UNIT/ML SUBCUT SCH ×4 (01:00→17:41)
[2020-08-27] MEDS: ALBUTEROL INHALER 18 GM INH SCH ×5 (01:30→23:35)
[2020-08-27] MEDS: LINEZOLID INJ 600 MG in PREMIX 1 EACH IV SCH ×2 (01:31→15:54)
[2020-08-27] MEDS: ENOXAPARIN 40 MG/0.4 ML SYRINGE SUBCUT SCH (01:31)
[2020-08-27] MEDS: ROCURONIUM 1,000 MG in SODIUM CHLORIDE 0.9% 175 ML IV PRN ×3 (04:37→22:52)
[2020-08-27 04:40] LABS: Allen Test Positive; Pt O2 Delivery Device Ventilator
[2020-08-27 04:41] LABS: ABG Base Excess -6.4 MMOL/L (-2.5-2.5); ABG Oxygen Saturation 86.8 % (95-100); ABG PO2 67.5 MM HG (80-95); ABG TCO2 23.4 MMOL/L (23-27)
[2020-08-27] MEDS: methylPREDNISolone SOD SUC 40 MG/1 ML VIAL IV SCH ×2 (04:43→15:54)
[2020-08-27 04:47] LABS: ABG PCO2 75.4 MM HG (35-48); ABG PH 7.114 (7.35-7.45)
[2020-08-27 07:04] LABS: Basophils % 0.3 % (0.0-0.8); Eosinophils # 0.2 10*3/uL (0.0-0.87); Eosinophils % 1.5 % (0.00-10.9); Hematocrit 25.9 VOL% (42.0-52.0); Hemoglobin 8.2 GM/DL (14.0-18.0); Immature Granulocytes % 5.3 %; Immature Granulocytes Absolute 0.77 #; Lymphocytes % 6.8 % (21.2-54.2); Mean Corpuscular HGB Conc 31.7 GM/DL (32-36); Mean Corpuscular Volume 90.6 FL (87-102); Mean Platelet Volume 11.9 FL (9.6-12.0); Monocytes % 4.1 % (1.7-12.7); NRBC # 0.47 10*3/uL; Platelet Count 145 T/CUMM (130-400); Red Blood Count 2.86 MC/CUMM (3.8-5.5); Red Cell Distribution Width 15.9 % (9.3-17.3); White Blood Count 14.5 T/CUMM (4-12)
[2020-08-27 07:32] LABS: Albumin 1.2 G/DL (3.4-5.0); Bilirubin,Total 0.9 MG/DL (0.2-1.0); Ferritin 298.7 ng/ml (26-388); Osmolality,Calculated 318.4 MOS/KG (273-304); Total Protein 5.9 G/DL (6.4-8.3)
[2020-08-27 07:56] LABS: Anisocytosis 3+; Band Neutrophils 41 % (0-10); Eosinophils 3 % (0-10); Lymphocytes 3 % (20-55); Metamyelocytes 2 %; Myelocytes 1 %; Nucleated Red Blood Cells 8 (0-5); Platelet Estimate Adequate; Polychromasia Slight; Segmented Neutrophils 48 % (50-85); Smudge Cells Few; Total Cells Counted 100
[2020-08-27 07:57] LABS: Macrocytosis 1+
[2020-08-27] MEDS: LEVOTHYROXINE 75 MCG TABLET PO SCH (08:05)
[2020-08-27] MEDS: FOLIC ACID 1 MG TABLET PER TUBE SCH (08:05)
[2020-08-27] MEDS: THIAMINE 100 MG TABLET PER TUBE SCH (08:05)
[2020-08-27] MEDS: ZINC SULFATE 220 MG CAPSULE PO SCH (08:05)
[2020-08-27] MEDS: BISACODYL 5 MG TABLET PO SCH (08:05)
[2020-08-27] MEDS: ASCORBIC ACID 500 MG TABLET PO SCH ×2 (08:05→20:41)
[2020-08-27] MEDS: CHOLECALCIFEROL 1,000 UNIT TABLET PO SCH (08:05)
[2020-08-27] MEDS: FUROSEMIDE 40 MG/4 ML VIAL IV SCH (08:07)
[2020-08-27] MEDS: cefTRIAXone 1,000 MG in SYRINGE 1 EACH IV SCH (08:07)
[2020-08-27] MEDS: INSULIN GLARGINE 100 UNIT/ML SUBCUT SCH (08:08)
[2020-08-27] MEDS: MULTIVITAMIN LIQUID (CENTRUM) 60 ML BOTTLE PER TUBE SCH (08:09)
[2020-08-27] MEDS: POLYETHYLENE GLYCOL POWDER 17 GM PACK PO SCH (08:09)
[2020-08-27] MEDS: fentaNYL INJ 1,250 MCG in SODIUM CHLORIDE 0.9% 225 ML IV PRN ×2 (08:19→18:29)
[2020-08-27] MEDS: CETIRIZINE 1 MG/ML 30 ML/BOTTLE PO SCH (09:27)
[2020-08-27] MEDS: METOPROLOL TARTRATE 25 MG TABLET PO SCH ×2 (09:36→20:40)
[2020-08-27] MEDS: FAMOTIDINE 20 MG/2 ML VIAL IV SCH (11:34)
[2020-08-27] MEDS: MINERAL OIL/PETROLATUM OPH OINT 3.5 GM TUBE BOTH EYES SCH ×4 (11:55→22:44)
[2020-08-27] MEDS: FLUCONAZOLE INJ 200 MG in PREMIX 1 EACH IV SCH (14:54)
[2020-08-27] MEDS: SODIUM BICARB INJ 100 MEQ in STERILE WATER INJ 1,000 ML IV SCH (17:38)
[2020-08-28] MEDS: INSULIN REGULAR 100 UNIT/ML SUBCUT SCH ×3 (00:14→12:06)
[2020-08-28] MEDS ORDERED: NOREPINEPHRINE 8 MG in SODIUM CHLORIDE 0.9% 242 ML IV PRN (01:37)
[2020-08-28] MEDS ORDERED: NOREPINEPHRINE 4 MG/4 ML VIAL IV ONE (01:38)
[2020-08-28] MEDS: LINEZOLID INJ 600 MG in PREMIX 1 EACH IV SCH (02:46)
[2020-08-28] MEDS: ENOXAPARIN 40 MG/0.4 ML SYRINGE SUBCUT SCH (02:46)
[2020-08-28] MEDS: methylPREDNISolone SOD SUC 40 MG/1 ML VIAL IV SCH (03:37)
[2020-08-28] MEDS: ALBUTEROL INHALER 18 GM INH SCH ×4 (03:37→16:32)
[2020-08-28 04:28] LABS: ABG Base Excess -7.5 MMOL/L (-2.5-2.5); ABG HCO3 18.1 MMOL/L (20-26); ABG Oxygen Saturation 82.3 % (95-100); ABG PO2 61.7 MM HG (80-95); ABG TCO2 22.1 MMOL/L (23-27); Allen Test Positive; Pt O2 Delivery Device Ventilator
[2020-08-28 04:33] LABS: ABG PCO2 71.2 MM HG (35-48); ABG PH 7.111 (7.35-7.45)
[2020-08-28] MEDS: fentaNYL INJ 1,250 MCG in SODIUM CHLORIDE 0.9% 225 ML IV PRN (04:40)
[2020-08-28] MEDS: MINERAL OIL/PETROLATUM OPH OINT 3.5 GM TUBE BOTH EYES SCH ×3 (06:09→16:32)
[2020-08-28] MEDS: SODIUM BICARB INJ 100 MEQ in STERILE WATER INJ 1,000 ML IV SCH ×2 (06:25→10:22)
[2020-08-28 06:38] LABS: Basophils # 0.1 10*3/uL (0.0-0.2); Basophils % 0.3 % (0.0-0.8); Hematocrit 25.8 VOL% (42.0-52.0); Hemoglobin 8.5 GM/DL (14.0-18.0); Immature Granulocytes % 5.6 %; Immature Granulocytes Absolute 0.89 #; Lymphocytes # 0.9 10*3/uL (1.4-4.0); Lymphocytes % 5.5 % (21.2-54.2); Mean Corpuscular HGB Conc 32.9 GM/DL (32-36); Mean Corpuscular Volume 91.2 FL (87-102); Mean Platelet Volume 11.9 FL (9.6-12.0); Monocytes % 5.3 % (1.7-12.7); NRBC # 0.54 10*3/uL; Neutrophils % 77.3 % (38.7-73.9); Platelet Count 157 T/CUMM (130-400); Red Blood Count 2.83 MC/CUMM (3.8-5.5)
[2020-08-28 07:04] LABS: Calcium 8.3 MG/DL (8.5-10.1)
[2020-08-28 07:14] LABS: Albumin 1.3 G/DL (3.4-5.0); Anisocytosis 1+; Band Neutrophils 34 % (0-10); Bilirubin,Total 1.1 MG/DL (0.2-1.0); Calcium 8.3 MG/DL (8.5-10.1); Eosinophils 12 % (0-10); Ferritin 269.9 ng/ml (26-388); Lymphocytes 4 % (20-55); Metamyelocytes 2 %; Myelocytes 1 %; Nucleated Red Blood Cells 5 (0-5); Platelet Estimate Normal; Segmented Neutrophils 45 % (50-85); Smudge Cells 1+; Total Cells Counted 100; Total Protein 5.9 G/DL (6.4-8.3)
[2020-08-28 07:15] LABS: Basophilic Stippling Slight; Polychromasia Slight; Spherocytes Few
[2020-08-28] MEDS: LEVOTHYROXINE 75 MCG TABLET PO SCH (08:30)
[2020-08-28] MEDS: BISACODYL 5 MG TABLET PO SCH (08:30)
[2020-08-28] MEDS: CHOLECALCIFEROL 1,000 UNIT TABLET PO SCH (08:30)
[2020-08-28] MEDS: cefTRIAXone 1,000 MG in SYRINGE 1 EACH IV SCH (08:30)
[2020-08-28] MEDS: FOLIC ACID 1 MG TABLET PER TUBE SCH (08:31)
[2020-08-28] MEDS: THIAMINE 100 MG TABLET PER TUBE SCH (08:31)
[2020-08-28] MEDS: POLYETHYLENE GLYCOL POWDER 17 GM PACK PO SCH (08:31)
[2020-08-28] MEDS: ZINC SULFATE 220 MG CAPSULE PO SCH (08:31)
[2020-08-28] MEDS: MULTIVITAMIN LIQUID (CENTRUM) 60 ML BOTTLE PER TUBE SCH (08:32)
[2020-08-28] MEDS: CETIRIZINE 1 MG/ML 30 ML/BOTTLE PO SCH (08:32)
[2020-08-28] MEDS: METOPROLOL TARTRATE 25 MG TABLET PO SCH (08:32)
[2020-08-28] MEDS: ASCORBIC ACID 500 MG TABLET PO SCH (08:35)
[2020-08-28] MEDS ORDERED: INSULIN GLARGINE 100 UNIT/ML SUBCUT SCH ×2 (09:00)
[2020-08-28] MEDS: FAMOTIDINE 20 MG/2 ML VIAL IV SCH (11:36)
[2020-08-28] MEDS ORDERED: LORazepam 2 MG/1 ML VIAL IV PRN (13:18)
[2020-08-28] MEDS ORDERED: MORPHINE 4 MG/1 ML VIAL IV PRN (13:18)
== END 2020-08-28 14:42 | disposition expired | DRG 870 ==
LOC: EDBD → EDUNIT# → N.ED 09:57 → N.EDINP 09:57 → SUATTDRO 12:53 → N.2E 13:39 → N.CC 08-08 11:46 → SUATTDRO 08-08 12:07
PROVIDERS: ADMIT Internal Medicine; ATTEND Internal Medicine